=== PATIENT | female | born 1970 | race Hispanic/Latino ===

== ENCOUNTER 2017-07-26 22:20 | Inpatient (IN) | payer OTHER ==
[~2017-07-26] VITALS: Ht 160 cm; Wt 94.5 kg
[~2017-07-26 22:20] MED LIST: BACTRIM DS TAB1 EACH PO; COLACE100 MG PO; ENALAPRIL MALE2.5 MG; HYDROXYZINE HCL10 MG PO; LEVEMIR 3M100 UNITS/ SC; LEVEMIR100 UNIT/1 SC; METFORMIN HCL500 MG PO; NEXIUM40 MG PO; NORCO 7.5-3251 EACH PO; NOVOLOG MI100 UNIT/1 SC; REGLAN10 MG PO; SENOKOT8.6 MG PO
[2017-07-27] VITALS (7 sets, daily range): BP systolic 88–149; BP diastolic 53–91
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
--- OUTSIDE RECORDS SUMMARY | 2017-07-27 00:57 | XMS REPORT | Clinical Summary ---
Author Author [facility] Organization [facility] Address Unknown Phone Unavailable Care Team Providers Care Sweatband Maker Name Role Phone Dali Wong MD PCP Allergies Active Allergy Reactions Severity Noted Date Comments Duloxetine Other (See Comments) High 10/22/2013 Anxiety and Speech impairement Current Medications Prescription Sig. Disp. Refills Start End Date Status Date fluticasone (FLONASE) 50 2 sprays by Each Nare Active mcg/actuation nasal spray route daily as needed for rhinitis. loratadine (CLARITIN) 10 Take 10 mg by mouth daily Active mg tablet as needed for allergies. HYDROcodone-acetaminophen Take 1 tablet by mouth Active (NORCO) 7.5-325 mg per every 6 (six) hours as tablet needed for moderate pain. metoclopramide (REGLAN) Take 10 mg by mouth 4 Active 10 MG tablet (four) times a day. zolpidem (AMBIEN) 5 MG Take 5 mg by mouth Active tablet nightly as needed for sleep. ALPRAZolam (XANAX) 0.25 Take 0.25 mg by mouth 2 Active MG tablet (two) times a day as needed for anxiety. metoprolol succinate XL Take 25 mg by mouth Active (TOPROL-XL) 25 mg 24 hr daily. tablet pregabalin (LYRICA) 75 MG Take 75 mg by mouth 3 Active capsule (three) times a day. omeprazole (PriLOSEC) 40 Take 40 mg by mouth Active MG capsule daily. lisinopril Take 5 mg by mouth daily. Active (PRINIVIL,ZESTRIL) 5 mg tablet insulin DETEMIR (LEVEMIR Inject 45 units twice a 15 pen 1 06/02/19 Active FLEXTOUCH U-100 INSULN) day 18 100 unit/mL (3 mL) insulin pen insulin ASPART (NovoLOG Inject 40 units tid with 20 pen 1 06/02/19 Active Flexpen U-100 Insulin) meals plus correction 18 100 unit/mL insulin pen scale. pen needle, diabetic (PEN Inject 5 times a day 200 each 1 06/02/19 Active NEEDLE) 31 gauge x 5/16" 18 needle blood sugar diagnostic Matrix test strip. Test 4 200 strip 2 06/02/19 Active strips (ONETOUCH ULTRA times a day + PRN 18 TEST) strip test strips lisinopril Take 5 mg by mouth daily. 12/11/19 Discontin (PRINIVIL,ZESTRIL) 5 mg 17 ued tablet tiZANidine (ZANAFLEX) 4 Take 4 mg by mouth every 12/11/19 Discontin MG tablet 8 (eight) hours as needed 17 ued for muscle spasms. metoprolol tartrate Take 25 mg by mouth 2 05/23/19 Discontin (LOPRESSOR) 25 mg tablet (two) times a day. 18 ued promethazine (PHENERGAN) Take 25 mg by mouth every 06/02/19 Discontin 12.5 MG tablet 6 (six) hours as needed 18 ued for nausea or vomiting. citalopram (CeleXA) 20 MG Take 20 mg by mouth 05/23/19 Discontin tablet daily. 18 ued pregabalin (LYRICA) 50 MG Take 50 mg by mouth 3 05/23/19 Discontin capsule (three) times a day. 18 ued aspirin (ECOTRIN) 81 MG Take 81 mg by mouth 05/23/19 Discontin enteric coated tablet daily. 18 ued insulin detemir (LEVEMIR) Inject 45 Units under the 06/02/19 Discontin 100 unit/mL injection skin 2 (two) times a day. 18 ued insulin ASPART (NovoLOG) Inject 40 Units under the 06/02/19 Discontin 100 unit/mL injection skin 3 (three) times a 18 ued day before meals. metroNIDAZOLE (FLAGYL) Take 500 mg by mouth 3 04/28/19 05/23/19 Discontin 500 MG tablet (three) times a day. For 17 18 ued 14 days starting 04/28/16 for Cdiff amitriptyline (ELAVIL) 25 Take 25 mg by mouth 05/23/19 Discontin MG tablet nightly. 18 ued loperamide (IMODIUM) 2 mg Take 2 mg by mouth 4 06/02/19 Discontin capsule (four) times a day as 18 ued needed for diarrhea. sucralfate (CARAFATE) 100 Take 10 mL (1 g total) by 1200 mL 0 01/15/20 mg/mL suspension mouth 4 (four) times a 17 17 day before meals and nightly for 30 days. pantoprazole (PROTONIX) Take 1 tablet (40 mg 30 tablet 0 12/16/19 40 MG EC tablet total) by mouth daily for 17 17 30 days. amitriptyline (ELAVIL) 50 Take 50 mg by mouth 06/02/19 Discontin MG tablet nightly. 18 ued bisacodyl (DULCOLAX) 5 mg Take 1 tablet (5 mg 30 tablet 0 06/02/19 07/02/19 EC tablet total) by mouth daily as 18 18 needed for constipation for up to 30 days. clotrimazole (LOTRIMIN) 1 Apply topically 2 (two) 12 g 0 06/02/19 % cream times a day for 30 days. 18 18 ergocalciferol (VITAMIN Take 1 capsule (50,000 4 capsule 0 06/08/19 07/08/19 D2) 50,000 unit capsule Units total) by mouth 18 18 once a week for 30 days. insulin GLARGINE (LANTUS) Inject 30 Units under the 9 mL 0 06/02/19 06/02/19 Discontin 100 unit/mL injection skin nightly for 30 days. 18 18 ued (vial) insulin GLARGINE (LANTUS) Inject 25 Units under the 7.5 mL 0 06/03/19 06/02/19 Discontin 100 unit/mL injection skin daily for 30 days. 18 18 ued (vial) insulin lispro (HumaLOG) Inject 0-7 Units under 10 mL 12 06/02/19 Discontin 100 unit/mL injection the skin 3 (three) times 18 18 ued a day with meals for 30 days. insulin lispro (HumaLOG) Inject 16 Units under the 10 mL 12 06/03/19 06/02/19 Discontin 100 unit/mL injection skin daily with breakfast 18 18 ued for 30 days. insulin lispro (HumaLOG) Inject 16 Units under the 10 mL 12 06/02/19 06/02/19 Discontin 100 unit/mL injection skin daily before lunch 18 18 ued for 30 days. insulin lispro (HumaLOG) Inject 16 Units under the 10 mL 12 06/02/19 06/02/19 Discontin 100 unit/mL injection skin daily before dinner 18 18 ued for 30 days. polyethylene glycol Take 17 g by mouth daily 30 packet 0 06/02/19 (MIRALAX) 17 gram packet for 30 days. 18 18 doxycycline (VIBRAMYCIN) Take 2 capsules (100 mg 28 capsule 0 06/02/19 Discontin 50 MG capsule total) by mouth 2 (two) 18 18 ued times a day for 7 days. doxycycline (VIBRAMYCIN) Take 1 capsule (100 mg 14 capsule 0 06/02/19 06/09/19 100 MG capsule total) by mouth 2 (two) 18 18 times a day for 7 days. Active Problems Problem Noted Date Vitamin D deficiency 05/31/2017 Acute kidney injury 12/10/2016 Gastroparesis 12/10/2016 HTN (hypertension) 12/10/2016 Type 2 diabetes mellitus, uncontrolled 12/10/2016 Gastroparesis 08/12/2016 Hyperglycemia 06/02/2016 Type 2 diabetes mellitus with hyperglycemia, with long-term current use of 04/22/2016 insulin DM2 2016 HTN 2016 Recurrent major depressive disorder 2016 Anxiety 2016 HLD 2016 Diabetic mononeuropathy associated with type 2 diabetes mellitus 2016 Diabetic gastroparesis s/p Gastric pacemaker 02/01/2016 Resolved Problems Problem Noted Date Resolved Date Lactic acidosis 12/10/2016 12/15/2016 Leukocytosis 12/10/2016 12/15/2016 Hypoglycemia 12/10/2016 12/15/2016 Sepsis 08/12/2016 08/22/2016 Acute cystitis without hematuria 08/12/2016 08/22/2016 Abdominal pain 06/06/2016 08/22/2016 Renal insufficiency 05/23/2016 08/22/2016 Abdominal pain, acute, generalized 04/20/2016 08/22/2016 Anemia 2016 08/22/2016 Encounters Date Type Specialty Care Team Description 07/26/2017 Emergency Emergency Medicine Daysi Rosas MD Gastroparesis (Primary Dx); ANTON (acute kidney injury); Hyperglycemia 06/27/2017 Telephone General Internal Medicine Lynda Martinez RN 06/25/2017 Transcribe Access Rosita Wong MD Colitis (Primary Dx) Orders 06/13/2017 Telephone Gastroenterology Ellen Allen MA 06/12/2017 Telephone Home Health Services Iris George, PAPER MILL SUPERINTENDENT 06/06/2017 Telephone General Internal Medicine Iris George, PAPER MILL SUPERINTENDENT 05/23/2017 [facility] João Fowler MD Gastroparesis (Primary - Encounter Rosita Wong MD Dx); 06/01/2017 Breast abscess; Type 2 diabetes mellitus with hyperglycemia, with long-term current use of insulin 12/09/2016 [facility] Kristin Deshpande-Miguelina Mcintyre MD Diabetic ketoacidosis - Encounter Rosita Wong MD without coma associated 12/15/2016 with other specified diabetes mellitus (Primary Dx); Lactic acidosis; Leukocytosis, unspecified type; Essential hypertension; Diabetic gastroparesis s/p Gastric pacemaker; Type 2 diabetes mellitus with other specified complication; Type 2 diabetes mellitus with hyperglycemia, with long-term current use of insulin 10/20/2016 Telephone General Surgery June Hobson MA 08/12/2016 [facility] João Fowler MD Gastroparesis (Primary - Encounter Rosita Wong MD Dx) 08/22/2016 after 07/26/2016 Immunizations Name Dates Previously Given Next Due FLUCELVAX QUAD PF (0.5mL 06/01/2017 syringe) INFLUENZA QUAD PF 2016 Family History Medical History Relation Name Comments Diabetes Father Diabetes Mother Heart disease Mother Relation Name Status Comments Father Mother Social History Tobacco Use Types Packs/Day Years Used Date Current Some Day Smoker Cigarettes 1 30 Quit: 10/01/2015 Tobacco Cessation: Counseling Given: Yes Alcohol Use Drinks/Week oz/Week Comments No Sex Assigned at Date Recorded Not on file Last Filed Vital Signs Vital Sign Reading Time Taken Blood Pressure 143/66 07/26/2017 11:00 PM CDT Pulse 89 07/26/2017 11:00 PM CDT Temperature 36.7 C (98.1 F) 07/26/2017 9:53 PM CDT Respiratory Rate 18 07/26/2017 11:00 PM CDT Oxygen Saturation 98% 07/26/2017 11:00 PM CDT Inhaled Oxygen - - Concentration Weight 93.7 kg (206 lb 8 oz) 06/01/2017 6:25 AM [employer] Height 160 cm (5' 3") 07/26/2017 4:31 PM CDT Body Mass Index 36.58 06/01/2017 6:25 AM [employer] Plan of Treatment Health Maintenance Due Date Last Done Comments FOOT EXAM 02/08/1978 OPHTHALMOLOGY EXAM 02/08/1978 URINE MICROALBUMIN 02/08/1978 PAP SMEAR 02/08/1989 INFLUENZA VACCINE 10/31/2017 06/01/2017, 2016 Implants Implanted Type Area Investment Advisor Device Expiration Model / Identifier Date Serial / Lot Pacemaker Pacemaker Procedures * The patient is currently admitted. The information in this section might not be complete until the patient is discharged. Procedure Name Priority Date/Time Associated Diagnosis Comments DEBRIDEMENT Routine 05/25/2017 Breast abscess Results for this 7:39 PM [employer] procedure are in the results section. [place] [facility], E/M Routine 12/10/2016 Results for this 30-74 MINUTES 9:29 PM CDT procedure are in the results section. GENERAL Routine 08/30/2016 Hidradenitis suppurativa Results for this 10:27 AM CDT procedure are in the results section. ECHOCARDIOGRAM 2D Routine 08/18/2016 Results for this COMPLETE W MMODE SPECTRAL 7:17 PM CDT procedure are in the COLOR DOPPLER ([id number]) results section. after 07/26/2016 Results * Urinalysis screen and microscopy, with reflex to culture (07/26/2017 9:53 PM) Only the most recent of 5 results within the time period is included. Component Value Ref Range Specimen site Clean catch Color, UA Yellow Appearance, UA Cloudy Specific gravity, UA 1.012 1.001 - 1.035 pH, UA 6.0 5.0 - 8.5 Protein, UA 2+ (A) Negative Glucose, UA 3+ (A) Negative Ketones, UA Negative Negative Bilirubin, UA Negative Negative Blood, UA Moderate (A) Negative Nitrite, UA Negative Negative Urobilinogen, UA <2.0 <2.0 Leukocyte esterase, UA Large (A) Negative Epithelial cells, UA 2 /HPF Round epithelial cells, <1 0 - 1 /HPF UA WBC, UA >180 (H) 0 - 4 /HPF RBC, UA 12 (H) 0 - 5 /HPF Bacteria, UA Moderate (A) None seen WBC clumps, UA Many (A) Yeast, UA None seen Yeast with pseudohyphae, None seen UA Specimen Performing Laboratory Urine [facility] [place] [address] * hCG qualitative, urine screen (07/26/2017 9:53 PM) Component Value Ref Range hCG qualitative, urine NegativeComment: Sensitivity of HCG test: 25 mIU/mL Specimen Performing Laboratory Urine [facility] DEPARTMENT OF PATHOLOGY [facility] MEDICINE [address] [place] [address] * POC glucose (07/26/2017 6:00 PM) Only the most recent of 134 results within the time period is included. Component Value Ref Range POC glucose 233 (H) 65 - 99 mg/dL Comment: Meter ID: [id number] Creative Services Coordinator: Gordy Upton Specimen Performing Laboratory [facility] DEPARTMENT OF PATHOLOGY AND [facility] MEDICINE [address] [place] [address] * Beta hydroxybutyrate (07/26/2017 4:49 PM) Only the most recent of 4 results within the time period is included. Component Value Ref Range Beta hydroxybutyrate 0.24 0.02 - 0.27 mmol/L Specimen Performing Laboratory Serum [facility] [place] [address] * B natriuretic peptide (07/26/2017 4:49 PM) Only the most recent of 3 results within the time period is included. Component Value Ref Range BNP 29 0 - 100 pg/mL Specimen Performing Laboratory Blood [facility] [place] [address] * Estimated GFR (07/26/2017 3:48 PM) Only the most recent of 33 results within the time period is included. Component Value Ref Range GFR Non Af Amer 34 (A) mL/min/1.73 m2 GFR Af Amer 41 (A) mL/min/1.73 m2 Comment: Chronic kidney disease: <60 mL/min/1.73m2 Kidney failure: <15 mL/min/1.73m2 The estimated GFR is calculated from the IDMS-traceable Modification of Diet in Renal Disease Equation. The accuracy of the calculation is poor when the creatinine is normal. Calculated values >90 mL/min/1.73m2 are not reported. This equation has not been validated in children (<18 years), women, the elderly (>70 years), or ethnic groups other than Caucasians and Americans. Specimen Performing Laboratory Plasma specimen [facility] DEPARTMENT OF PATHOLOGY AND [facility] MEDICINE [address] [place] [address] * CBC with platelet and differential (07/26/2017 3:48 PM) Only the most recent of 23 results within the time period is included. Component Value Ref Range WBC 7.84 4.50 - 11.00 k/uL RBC 4.23 4.20 - 5.50 m/uL HGB 12.8 12.0 - 16.0 g/dL HCT 39.0 37.0 - 47.0 % MCV 92.2 82.0 - 100.0 fL MCH 30.3 27.0 - 34.0 pg MCHC 32.8 31.0 - 37.0 g/dL RDW - SD 46.7 37.0 - 55.0 fL MPV 10.2 8.8 - 13.2 fL Platelet count 278 150 - 400 k/uL Nucleated RBC 0.00 /100 WBC Neutrophils 80.7 (H) 39.0 - 69.0 % Lymphocytes 15.6 (L) 25.0 - 45.0 % Monocytes 2.9 0.0 - 10.0 % Eosinophils 0.1 0.0 - 5.0 % Basophils 0.4 0.0 - 1.0 % Immature granulocytes 0.3Comment: "Immature granulocytes" 0.0 - 1.0 % (promyelocytes, myelocytes, metamyelocytes) Specimen Performing Laboratory Blood [facility] DEPARTMENT OF PATHOLOGY AND [address] [address] * Comprehensive metabolic panel (07/26/2017 3:48 PM) Only the most recent of 7 results within the time period is included. Component Value Ref Range Sodium 135 135 - 148 mEq/L Potassium 5.0 3.5 - 5.0 mEq/L Chloride 99 98 - 112 mEq/L CO2 19 (L) 24 - 31 mEq/L Anion gap 17 (H) 7 - 15 mEq/L Comment: Starting from July , anion gap calculation no longer incorporates potassium. Please note the change. BUN 41 (H) 6 - 20 mg/dL Creatinine 1.6 (H) 0.5 - 0.9 mg/dL Glucose 336 (H) 65 - 99 mg/dL Calcium 9.8 8.3 - 10.2 mg/dL Protein 8.6 (H) 6.3 - 8.3 g/dL Comment: 4.6-7.0 g/dL 1 week 4.4-7.6 g/dL 7 months-1year 5.1-7.3 g/dL 1-2 years 5.6-7.5 g/dL >3 years 6.0-8.0 g/dL 18-150 6.3-8.3 g/dL Albumin 3.6 3.5 - 5.0 g/dL A/G ratio 0.7 0.7 - 3.8 Alkaline phosphatase 124 (H) 35 - 104 U/L AST 15 10 - 35 U/L ALT 11 5 - 50 U/L Total bilirubin 0.3 0.0 - 1.2 mg/dL Specimen Performing Laboratory Plasma specimen [facility] DEPARTMENT OF PATHOLOGY AND GENOMIC MEDICINE [address] [place], [place] [id number] * Vancomycin level, trough (06/01/2017 9:28 AM) Only the most recent of 3 results within the time period is included. Component Value Ref Range Vancomycin, trough 10.3 10.0 - 20.0 ug/mL Comment: Therapeutic Ranges: Peak 30.0 - 40.0 ug/mL Trough 10.0 - 20.0 ug/mL Specimen Performing Laboratory Serum [facility] DEPARTMENT OF PATHOLOGY AND [facility] MEDICINE [address] [place] [address] * Prothrombin time with INR (06/01/2017 4:40 AM) Only the most recent of 5 results within the time period is included. Component Value Ref Range Prothrombin time 13.5 12.0 - 15.0 sec INR 1.0 Comment: The International Normalized Ratio (INR) is a therapeutic monitoring tool for patients who are stable on oral anticoagulant therapy. An INR of 2.0-3.0 is suggested for deep vein thrombosis/pulmonary embolism. Specimen Performing Laboratory Blood [facility] DEPARTMENT OF PATHOLOGY AND [facility] MEDICINE [address] [place] [address] * Basic metabolic panel (06/01/2017 4:40 AM) Only the most recent of 26 results within the time period is included. Component Value Ref Range Sodium 136 135 - 148 mEq/L Potassium 4.4 3.5 - 5.0 mEq/L Chloride 97 (L) 98 - 112 mEq/L CO2 26 24 - 31 mEq/L Anion gap 13 7 - 15 mEq/L Comment: Starting from July , anion gap calculation no longer incorporates potassium. Please note the change. BUN 22 (H) 6 - 20 mg/dL Creatinine 1.2 (H) 0.5 - 0.9 mg/dL Glucose 320 (H) 65 - 99 mg/dL Calcium 9.5 8.3 - 10.2 mg/dL Specimen Performing Laboratory Plasma specimen [facility] DEPARTMENT OF PATHOLOGY AND GENOMIC MEDICINE [address] [place] [address] * Prealbumin level (05/31/2017 4:00 AM) Component Value Ref Range Prealbumin 15 (L) 16 - 32 mg/dL Specimen Performing Laboratory Serum [facility] [place] [address] * XR Abdomen 1 Vw (05/30/2017 8:39 PM) [place] [address] Narrative EXAMINATION:XR ABDOMEN 1 VW CLINICAL HISTORY:ABDOMINAL PAIN, constipation COMPARISON:Most recent IMPRESSION: 1.Oral contrast throughout the colon. Electronic device right abdomen. No small bowel obstruction seen. [id number] Procedure Note Interface, Radiology Results Incoming - 05/30/2017 8:54 PM [employer] EXAMINATION: XR ABDOMEN 1 VW CLINICAL HISTORY: ABDOMINAL PAIN, constipation COMPARISON: Most recent IMPRESSION: 1. Oral contrast throughout the colon. Electronic device right abdomen. No small bowel obstruction seen. [id number] * XR Abdomen 1 Vw Portable (05/29/2017 11:30 AM) [place] [address] Narrative EXAMINATION:XR ABDOMEN 1 VW PORTABLE CLINICAL HISTORY:constipation COMPARISON:None. IMPRESSION: There is a nonspecific bowel gas pattern. No free air is identified. Moderate amount retained contrast in the colon Atelectasis in the lung bases. Degenerative changes are present throughout the bony structures without evidence of a suspicious focal lesion. [id number] Procedure Note Interface, Radiology Results Incoming - 05/29/2017 1:03 PM [employer] EXAMINATION: XR ABDOMEN 1 VW PORTABLE CLINICAL HISTORY: constipation COMPARISON: None. IMPRESSION: There is a nonspecific bowel gas pattern. No free air is identified. Moderate amount retained contrast in the colon Atelectasis in the lung bases. Degenerative changes are present throughout the bony structures without evidence of a suspicious focal lesion. [id number] * Salmonella/shigella culture (05/29/2017 8:00 AM) Only the most recent of 2 results within the time period is included. Component Value Ref Range Salmonella/shigella No Aeromonas isolated culture isolate No Aeromonas isolated Comment: Specimen Information Specimen Source: Stool Specimen Site: Nonpreserved Specimen Performing Laboratory [facility] [place] [address] * Gastrointestinal panel (05/29/2017 8:00 AM) Only the most recent of 2 results within the time period is included. Component Value Ref Range Gastrointestinal panel Negative for all pathogens tested: Negative for Salmonella Negative for Campylobacter Negative for Diarrheagenic E coli/Shigella Negative for Shiga-like toxin-producing E coli Negative for Plesiomonas shigelloides Negative for Yersinia enterocolitica Negative for Vibrio species Negative for Clostridium difficile (Toxin A/B) Negative for Cryptosporidium Negative for Giardia lamblia Negative for Cyclospora cayeteanensis Negative for Entamoeba histolytica Negative for Adenovirus F 40/41 Negative for Astrovirus Negative for Norovirus GI/GII Negative for Rotavirus A Negative for Sapovirus Negative for Clostridium difficile toxin Negative for E coli 0157 This real-time PCR assay detects the presence of nucleic acids (RNA or DNA) for the gastrointestinal pathogens listed. A result of "Not-detected" does not exclude the possibility of the presence of one or more pathogens at concentrations less than the detectable limits of the assay. Comment: Specimen Information Specimen Source: Stool Specimen Site: Nonpreserved Specimen Performing Laboratory [facility] [place] [address] * Lipase level (05/29/2017 6:03 AM) Only the most recent of 4 results within the time period is included. Component Value Ref Range Lipase 27 13 - 60 U/L Specimen Performing Laboratory Plasma specimen [facility] DEPARTMENT OF PATHOLOGY AND [address] [address] * Amylase level (05/29/2017 6:03 AM) Only the most recent of 3 results within the time period is included. Component Value Ref Range Amylase 48 28 - 100 U/L Specimen Performing Laboratory Plasma specimen [facility] DEPARTMENT OF PATHOLOGY AND [address] [address] * Hepatic function panel (05/29/2017 6:03 AM) Component Value Ref Range Albumin 2.4 (L) 3.5 - 5.0 g/dL Total bilirubin <0.2 0.0 - 1.2 mg/dL Bilirubin direct <0.2 0.0 - 0.3 mg/dL Alkaline phosphatase 63 35 - 104 U/L Protein 6.4 6.3 - 8.3 g/dL Comment: 4.6-7.0 g/dL 1 week 4.4-7.6 g/dL 7 months-1year 5.1-7.3 g/dL 1-2 years 5.6-7.5 g/dL >3 years 6.0-8.0 g/dL 18-150 6.3-8.3 g/dL ALT 10 5 - 50 U/L AST 11 10 - 35 U/L Specimen Performing Laboratory Plasma specimen [facility] DEPARTMENT OF PATHOLOGY AND GENOMIC MEDICINE [address] [place] [address] * SC Upper GI (05/28/2017 9:58 AM) Specimen Performing Laboratory [facility] [address] [place] [address] Narrative EXAMINATION:FL UPPER GI CLINICAL HISTORY:Esophageal Pain COMPARISON:None. TECHNIQUE:UPPER GI SERIES was performed with effervescent granules and barium. FLUOROSCOPIC TIME:2 minutes. 3 overhead radiographs and 12 fluoroscopic exposures. IMPRESSION: 1.Limited single contrast study was performed due to patient immobility. Positioning was quite limited. 2.Esophagus was evaluated in AP and minimally LPO projections. Within these confines, there was no evidence of obstructing esophageal mass or stricture. There was grossly normal esophageal motility/clearance. 3.GE junction is patent. Questionable small hiatal hernia. 4.Gastric contour is grossly normal. There was delayed gastric emptying; only a trace amount of contrast entered into the duodenum during the course of the exam.This can be correlated with gastric emptying study as indicated. 5.Duodenum cannot be evaluated, as contrast did not empty into the duodenum during the course of the exam. [facility]-[id number] Procedure Note Interface, Radiology Results Incoming - 05/28/2017 10:58 AM [employer] EXAMINATION: FL UPPER GI CLINICAL HISTORY: Esophageal Pain COMPARISON: None. TECHNIQUE: UPPER GI SERIES was performed with effervescent granules and barium. FLUOROSCOPIC TIME: 2 minutes. 3 overhead radiographs and 12 fluoroscopic exposures. IMPRESSION: 1. Limited single contrast study was performed due to patient immobility. Positioning was quite limited. 2. Esophagus was evaluated in AP and minimally LPO projections. Within these confines, there was no evidence of obstructing esophageal mass or stricture. There was grossly normal esophageal motility/clearance. 3. GE junction is patent. Questionable small hiatal hernia. 4. Gastric contour is grossly normal. There was delayed gastric emptying; only a trace amount of contrast entered into the duodenum during the course of the exam. This can be correlated with gastric emptying study as indicated. 5. Duodenum cannot be evaluated, as contrast did not empty into the duodenum during the course of the exam. [facility]-[id number] * Uric acid level (05/28/2017 4:35 AM) Only the most recent of 3 results within the time period is included. Component Value Ref Range Uric acid 1.6 (L) 2.4 - 5.7 mg/dL Specimen Performing Laboratory Plasma specimen [facility] DEPARTMENT OF PATHOLOGY AND GENOMIC MEDICINE [address] [place] [address] * Phosphorus level (05/28/2017 4:35 AM) Only the most recent of 9 results within the time period is included. Component Value Ref Range Phosphorus 2.0 (L) 2.4 - 4.5 mg/dL Specimen Performing Laboratory Plasma specimen [facility] DEPARTMENT OF PATHOLOGY AND GENOMIC MEDICINE [address] [place] [address] * Magnesium level (05/28/2017 4:35 AM) Only the most recent of 14 results within the time period is included. Component Value Ref Range Magnesium 1.8 1.6 - 2.6 mg/dL Specimen Performing Laboratory Plasma specimen [facility] DEPARTMENT OF PATHOLOGY AND GENOMIC MEDICINE [address] [place] [address] * Vitamin D 25 hydroxy level (05/26/2017 3:00 AM) Component Value Ref Range Vitamin D, 25-hydroxy 7.0 (L) 30.0 - 150.0 ng/mL Comment: This assay reports the sum of 25-hydroxy vitamin D3 and 25-hydroxy vitamin D2. Reference range: 0-17 years: Deficiency: less than 20ng/mL Optimum level: greater than or equal to 20 ng/mL. 18 years and older: Deficiency: less than 20ng/mL Insufficiency: 20-29 ng/mL Optimum Level: 30-80 ng/mL The assay reportable range is 3.4 155.9 ng/mL. Levels higher than 150 ng/mL may be associated with toxicity. If toxicity is clinically suspected and the reported result is >155.9 ng/mL,contact lab for alternative methods to obtain a definitive level. If separate quantitation of 25-hydroxy vitamin D3 and 25-hydroxy vitamin D2 is needed, please contact lab for alternative methods. Specimen Performing Laboratory Blood [facility] DEPARTMENT OF PATHOLOGY AND GENOMIC MEDICINE [address] [place] [address] * Hemoglobin A1c (05/26/2017 3:00 AM) Only the most recent of 3 results within the time period is included. Component Value Ref Range Hemoglobin A1C 10.0 (H) 4.0 - 5.6 % Comment: HbA1c cutoffs for diagnosing diabetes: 4.0% - 5.6%=normal 5.7% - 6.4%=increased risk for diabetes (prediabetes) >=6.5%=diabetes Goals for glycemic control (ADA 2016) < 7.0% Target for non adults with diabetes. More or less stringent targets may be appropriate for individual patients. <7.5% Target for Children and adolescents with type 1 diabetes. Specimen Performing Laboratory Blood [facility] DEPARTMENT OF PATHOLOGY AND GENOMIC MEDICINE [address] [place] [address] * Lipid panel (05/26/2017 3:00 AM) Component Value Ref Range Cholesterol 144 <200 mg/dL Triglycerides 329 (H) <150 mg/dL HDL cholesterol 21 (L) >40 mg/dL LDL cholesterol 82Comment: Result obtained by direct LDL <100 mg/dL measurement Lipid panel SeeBelow interpretation Comment: Total Cholesterol (mg/dL) <200 Desirable 200-239 Borderline-high >=240 High Triglycerides (mg/dL) <150 Normal 150-199 Borderline-high 200-499 High >=500 Very high HDL Cholesterol (mg/dL) <40 Low (male) <40 Low (female) LDL Cholesterol (mg/dL) <100 Optimal 100-129 Near or above optimal 130-159 Borderline-high 160-189 High >=190 Very high Risk Catergories that modify LDL goals. Risk Catergories LDL goal (mg/dL) CHD and CHD risk equivalent <100 (10-year risk >20%) Multiple (2+) risk factors <130 (10-year risk=<20%) 0-1 risk factors <160 (<10-year risk) Defining levels of lipids in metabolic syndrome Triglycerides >=150 mg/dL HDL Cholesterol Men <40 mg/dL Women <40 mg/dL Non-HDL cholesterol is a second target for therapy in persons with high triglycerides (>=200 mg/dL) Specimen Performing Laboratory Plasma specimen [facility] DEPARTMENT OF PATHOLOGY AND [address] [address] * Urine eosinophils (05/26/2017 12:30 AM) Component Value Ref Range Eosinophils, urine NONE Specimen Performing Laboratory Urine [facility] DEPARTMENT PATHOLOGY [facility] MEDICINE [address] [place] [address] * Sodium level, urine, random (05/26/2017 12:30 AM) Component Value Ref Range Sodium, urine, random 46 mEq/L Specimen Performing Laboratory Urine [facility] DEPARTMENT PATHOLOGY [address] [address] * Protein, urine, random (05/26/2017 12:30 AM) Component Value Ref Range Protein, urine random 5 mg/dL Specimen Performing Laboratory Urine [facility] DEPARTMENT PATHOLOGY [address] [address] * Potassium, urine, random (05/26/2017 12:30 AM) Component Value Ref Range Potassium, urine, random 10.2 mEq/L Specimen Performing Laboratory Urine [facility] DEPARTMENT PATHOLOGY [address] [address] * Creatinine level, urine, random (05/26/2017 12:30 AM) Component Value Ref Range Creatinine, urine, random 23 mg/dL Specimen Performing Laboratory Urine [facility] DEPARTMENT OF PATHOLOGY [address] [address] * Chloride level, urine, random (05/26/2017 12:30 AM) Component Value Ref Range Chloride, urine, random 36 mEq/L Specimen Performing Laboratory Urine [facility] DEPARTMENT OF PATHOLOGY [facility] MEDICINE [address] [place] [address] * Debridement (05/25/2017 7:39 PM) Narrative Jorge Luis Mueller MD 05/25/20171:44 PM Incisions and Drainage of Right Breast Abscess Date/Time: 05/25/2017 1:39 PM Performed by: JORGE LUIS MUELLER Authorized by: MOIRA LOCKE JR. Consent Obtained:Verbal Risks and benefits discussed with:Patient [place] Protocol: Procedure explained and questions answered to patient or proxy's satisfaction. Relevant documents present and verified.Test results available and properly labeled.Imaging studies available. Site/side marked. Immediately prior to procedure, a time out was called. Patient identity confirmed:Verbally with patient Number of Locations and Indications: Number of Locations:1 Indications:Other Patient tolerated the procedure well with no immediate complications. Anesthesia: Local Anesthetic:Lidocaine 1% with epinephrine Anesthetic Total (mL):5 Response To Treatment: Response to Treatment:Patient tolerated the procedure well with no immediate complications Skin lesion 1 location: Right medial breast. Pre Debridement Measurements: Length (cm):2 Width (cm):1 Area (cm3):2 Debridement 1: Incision and drainage. Drainage Description:Purulent Drainage Amount:Moderate Wound Treatment:Wound packed Packing Material:/ in gauze Instrument:Blade, curette and forceps (mosquito) Bleeding:Minimal Post Length (cm):2 Post Width (cm):1 Post Depth (cm):2 Depth (through level of):Superficial and/or subcutaneous and/or dermis and/or fat layer Medical Necessity:Infected * ECG 12 lead (05/23/2017 4:41 PM) Only the most recent of 5 results within the time period is included. Component Value Ref Range Ventricular rate 97 Atrial rate 97 AZ interval 126 QRSD interval 78 QT interval 366 QTC interval 464 P axis 1 47 QRS axis 1 57 T wave axis 73 EKG impression ^^^ Suspect unspecified pacemaker failure-Normal sinus rhythm-Nonspecific ST and T wave abnormality-Abnormal ECG-In automated comparison with ECG of 12-DEC-2016 13:57,-Nonspecific T wave abnormality now evident in Lateral leads- Specimen Performing Laboratory [facility] MUSE [address] [place] [address] * Troponin (05/23/2017 4:20 PM) Only the most recent of 5 results within the time period is included. Component Value Ref Range Troponin <0.30 0.00 - 0.30 ng/mL Comment: 0.30 - 1.49 ng/ml May indicate increased risk of acute coronary syndrome. >=1.5 ng/ml Consistent with acute myocardial infarction. The diagnostic value of a single normal or non-diagnostic result is questionable. Serial samples at 2-6 hour intervals are required to rule out acute myocardial injury. Specimen Performing Laboratory Plasma specimen [facility] DEPARTMENT OF PATHOLOGY AND GENOMIC MEDICINE [address] [place] [address] * Partial thromboplastin time, activated (05/23/2017 4:20 PM) Only the most recent of 4 results within the time period is included. Component Value Ref Range PTT 25.8 23.0 - 36.0 sec Comment: PTT therapeutic range for unfractionated heparin is 61.0-112.0 seconds which corresponds to Anti-Xa 0.3-0.7 U/ml. Specimen Performing Laboratory Blood [facility] DEPARTMENT OF PATHOLOGY AND GENOMIC MEDICINE [address] [place] [address] * Lactic acid level (05/23/2017 4:20 PM) Only the most recent of 9 results within the time period is included. Component Value Ref Range Lactic acid 1.6 0.5 - 2.2 mmol/L Specimen Performing Laboratory Plasma specimen [facility] DEPARTMENT OF PATHOLOGY AND GENOMIC MEDICINE [address] [place] [address] * ECG ED Preliminary Interpretation - NOT AN ORDER (05/23/2017 2:53 PM) Narrative João Fowler MD 05/24/2017 11:31 AM ECG ED Preliminary Interpretation - Not an Order Performed by: JOÃO FOWLER Authorized by: JOÃO FOWLER ECG reviewed by ED Physician in the absence of a therapist asst: yes Previous ECG: Previous ECG:Compared to current Similarity:Changes noted Interpretation: Interpretation: abnormal Rate: ECG rate:97 ECG rate assessment: normal Rhythm: Rhythm: paced Ectopy: Ectopy: none QRS: QRS axis:Normal QRS intervals:Normal Conduction: Conduction: normal ST segments: ST segments:Non-specific T waves: T waves: non-specific * XR Chest 1 Vw Portable (05/23/2017 2:49 PM) Only the most recent of 3 results within the time period is included. Specimen Performing Laboratory [facility] [address] [place] [address] Narrative EXAMINATION:XR CHEST 1 VW PORTABLE CLINICAL HISTORY:Chest Pain COMPARISON:Most Recent Prior at [facility] IMPRESSION: 1. The heart and pulmonary vasculature are normal. There are no acute infiltrates or effusions. The lungs are clear. Osseous structures intact. Degenerative changes of the spine. [facility]-[id number] Procedure Note Hm Interface, Radiology Results Incoming - 05/23/2017 2:57 PM [facility] [employer] [employer] EXAMINATION: XR CHEST 1 VW PORTABLE CLINICAL HISTORY: Chest Pain COMPARISON: Most Recent Prior at [facility] IMPRESSION: 1. The heart and pulmonary vasculature are normal. There are no acute infiltrates or effusions. The lungs are clear. Osseous structures intact. Degenerative changes of the spine. [facility]-[id number] * FL Esophagram Complete (12/13/2016 12:02 PM) Specimen Performing Laboratory [address] [address] Narrative EXAMINATION:FL ESOPHAGRAM COMPLETE CLINICAL HISTORY:DIFFICULTY SWALLOWING, DYSPHAGIAOROPHARYNGEAL UNEXPLAINED COMPARISON:None. Fluoroscopy time: 4.3 minutes, 19 images obtained FINDINGS: The patient swallowed air producing granules and barium without difficulty. The esophagus demonstrates normal motility. No focal mucosal abnormality is identified. There is no evidence of stricture. The esophagogastric junction is unremarkable. There is no evidence of gastroesophageal reflux. IMPRESSION: No significant abnormality. [facility]-[id number] Procedure Note Interface, Radiology Results Incoming - 12/13/2016 1:42 PM CDT EXAMINATION: FL ESOPHAGRAM COMPLETE CLINICAL HISTORY: DIFFICULTY SWALLOWING, DYSPHAGIA OROPHARYNGEAL UNEXPLAINED COMPARISON: None. Fluoroscopy time: 4.3 minutes, 19 images obtained FINDINGS: The patient swallowed air producing granules and barium without difficulty. The esophagus demonstrates normal motility. No focal mucosal abnormality is identified. There is no evidence of stricture. The esophagogastric junction is unremarkable. There is no evidence of gastroesophageal reflux. IMPRESSION: No significant abnormality. [facility]-[id number] * Potassium level (12/11/2016 5:55 AM) Only the most recent of 2 results within the time period is included. Component Value Ref Range Potassium 3.9 3.5 - 5.0 mEq/L Specimen Performing Laboratory Plasma specimen [facility] DEPARTMENT OF PATHOLOGY AND GENOMIC MEDICINE [address] [place] [address] * Ionized calcium (12/11/2016 4:00 AM) Only the most recent of 3 results within the time period is included. Component Value Ref Range pH 7.55 Ionized calcium 1.10 (L) 1.11 - 1.32 mmol/L Specimen Performing Laboratory Plasma specimen [facility] DEPARTMENT OF PATHOLOGY AND GENOMIC MEDICINE [address] [place] [address] * CRITICAL CARE (12/10/2016 9:29 PM) Alvin Deshpande MD 12/10/20169:29 PM Critical Care Performed by: JONATHAN HERNÁNDEZ Authorized by: ALONA DESHPANDE Critical care provider statement: Critical care time (minutes):35 Critical care start time:12/10/2016 12:20 AM Critical care end time:12/10/2016 12:55 AM Critical care time was exclusive of:Separately billable procedures and treating other patients and teaching time Critical care was necessary to treat or prevent imminent or life-threatening deterioration of the following conditions:Dehydration, endocrine crisis, metabolic crisis, renal failure, sepsis and shock Critical care was time spent personally by me on the following activities:Blood draw for specimens, development of treatment plan with patient or surrogate, discussions with primary provider, ordering and performing treatments and interventions, ordering and review of laboratory studies, ordering and review of radiographic studies, pulse oximetry, re-evaluation of patient's condition, review of old charts, obtaining history from patient or surrogate, evaluation of patient's response to treatment and examination of patient * Pv duplex venous lower extremity (12/10/2016 1:55 PM) Specimen Performing Laboratory [facility] [address] [place] [address] Narrative Vascular Ultrasound Laboratory Lower Extremity Venous Report [address] [place] [address] Pat.Name:Natali AVILEZ.ID:[id number] .Date: 12/10/2016 Refer.MD:ROSITA WONG MD Exam Time: 1:32:00 PMStudy Type:LE Venous Height:63inWeight:202lb BSA: 1.94 m2 DOBAge:1969,46Y Sex: FEMALESonogrphr: Ángel Santana, [facility], [facility] Pat. Stat.:Inpatient Room:[place] [address] TapeVol: SB, CPT - 4: 96694 Echo Event ID:[id number] Order ID:[id number] Reason for Study:Bilateral leg edema; evaluate for DVT. Abdominal pain and vomiting. History of HTN, depression/anxiety, gastroparesis, HLD, anemia, DM and chronic pain. Race:C SUMMARY: DUPLEX SCAN OBSERVATIONS Deep VeinsSuperficial Veins RightLeft RightLeft GSV (prox) NormalNormal CFV Normal Normal (above knee) Femoral Normal Normal GSV (dist) Normal Normal Profunda Normal Normal (below knee) Popliteal Normal Normal PT (prox) Normal NormalSSV Not Visualized Not Visualized PT (dist) Normal Normal Peroneal Normal Normal RIGHT:There is normal compressibility with no evidence of echogenic material noted within the lumen of the visualized veins. Colorflow and Doppler signals are normal. LEFT: There is normal compressibility with no evidence of echogenic material noted within the lumen of the visualized veins. Colorflow and Doppler signals are normal. PRELIMINARY FINDINGS 1. Normal venous duplex exam of the visualized veins. PHYSICIAN INTERPRETATION 1.Venous examination of the both lower extremities demonstrates no evidence of venous thrombosis. Signed 12/10/2016 03:58 PM Wade Saini MD Procedure Note Interface, Radiology Results In - 12/10/2016 3:58 PM CDT Vascular Ultrasound Laboratory Lower Extremity Venous Report [address] [place] [address] Pat.Name: KRISTIN AVILEZ Pat.ID: [id number] .Date: 12/10/2016 Refer.MD: ROSITA WONG MD Exam Time: 1:32:00 PM Study Type:LE Venous Height: 63in Weight: 202lb BSA: 1.94 m2 Age: 11 1970,46Y Sex: FEMALE Sonogrphr: ERWIN Padilla RCS Pat. Stat.:Inpatient Room: [place] [address] Tape Vol: SB, CPT - 4: 96471 Echo Event ID:[id number] Order ID: [id number] Reason for Study:Bilateral leg edema; evaluate for DVT. Abdominal pain and vomiting. History of HTN, depression/anxiety, gastroparesis, HLD, anemia, DM and chronic pain. Race: C SUMMARY: DUPLEX SCAN OBSERVATIONS Deep Veins Superficial Veins Right Left Right Left GSV (prox) Normal Normal CFV Normal Normal (above knee) Femoral Normal Normal GSV (dist) Normal Normal Profunda Normal Normal (below knee) Popliteal Normal Normal PT (prox) Normal Normal SSV Not Visualized Not Visualized PT (dist) Normal Normal Peroneal Normal Normal RIGHT: There is normal compressibility with no evidence of echogenic material noted within the lumen of the visualized veins. Colorflow and Doppler signals are normal. LEFT: There is normal compressibility with no evidence of echogenic material noted within the lumen of the visualized veins. Colorflow and Doppler signals are normal. PRELIMINARY FINDINGS 1. Normal venous duplex exam of the visualized veins. PHYSICIAN INTERPRETATION 1. Venous examination of the both lower extremities demonstrates no evidence of venous thrombosis. Signed 12/10/2016 03:58 PM Wdae Saini MD * Respiratory pathogen panel (12/10/2016 5:05 AM) Component Value Ref Range Respiratory pathogen Negative for all pathogens tested: panel Negative for Adenovirus Negative for Coronavirus HKU1 Negative for Coronavirus NL63 Negative for Coronavirus 229E Negative for Coronavirus OC43 Negative for Human Metapneumovirus Negative for Rhinovirus/Enterovirus Negative for Influenza A Negative for Influenza A/H1 Negative for Influenza A/H3 Negative for Influenza A/H1-2009 Negative for Influenza B Negative for Parainfluenza Virus 1 Negative for Parainfluenza Virus 2 Negative for Parainfluenza Virus 3 Negative for Parainfluenza Virus 4 Negative for Respiratory Syncytial Virus Negative for Bordetella pertussis Negative for Chlamydophila pneumoniae Negative for Mycoplasma pneumoniae This real-time PCR assay detects the presence of nucleic acids (RNA or DNA) for the respiratory pathogens listed. A result of "Not-detected" does not exclude the possibility of the presence of one or more pathogens at concentrations less than the detectable limits of the assay. Comment: Specimen Information Specimen Source: Nares Specimen Site: Left Specimen Performing Laboratory Nares - Left [facility] DEPARTMENT OF PATHOLOGY AND GENOMIC MEDICINE [address] [place], [place] [id number] * hCG qualitative, serum screen (12/10/2016 5:05 AM) Only the most recent of 2 results within the time period is included. Component Value Ref Range hCG qualitative, serum NegativeComment: Sensitivity of HCG test: 25 mIU/mL Specimen Performing Laboratory Blood [facility] DEPARTMENT OF PATHOLOGY AND GENOMIC MEDICINE [address] [place] [address] * Urine drugs of abuse screen (12/10/2016 4:57 AM) Component Value Ref Range Amphetamine screen, urine Negative Barbiturate screen, urine Negative Benzodiazepine screen, Negative urine Cannabinoid screen, urine Negative Cocaine screen, urine Negative Methadone metabolite Negative (EDDP), urine Opiates screen, urine Positive (A) Oxycodone screen, urine Negative Phencyclidine screen, Negative urine Tricyclic screen, urine Negative Comment: Drug screen minimum concentration of detectability Amphetamines 1000 ng/mL Barbiturates 200 ng/mL Benzodiazepines 300 ng/mL Cocaine 300 ng/mL Methadone 3 00 ng/mL Opiates 300 ng/mL Oxycodone 3 00 ng/mL Phencyclidine 25 ng/mL Cannabinoids 50 ng/mL Tricyclics 1000 ng/mL Negative test results indicates presumptive evidence of lack of clinically significant drug concentration in this urine specimen. Positive test results are presumptive evidence of clinically significant drug concentration in this urine specimen. Testing performed for medical purposes only. Specimen Performing Laboratory Urine [facility] DEPARTMENT OF PATHOLOGY AND GENOMIC MEDICINE [address] [place] [address] * Gram stain (12/10/2016 4:40 AM) Only the most recent of 3 results within the time period is included. Component Value Ref Range Gram stain result Rare WBC's Many Yeast Many Gram positive rods Comment: Specimen Information Specimen Source: Urine Specimen Site: See UA Specimen Performing Laboratory Urine [facility] DEPARTMENT OF PATHOLOGY AND GENOMIC MEDICINE [address] [place] [address] * Urine culture (12/10/2016 4:40 AM) Only the most recent of 3 results within the time period is included. Component Value Ref Range Urine culture isolate Mixed Gram positive jerson 10-4 cfu/ml (A) Comment: Specimen Information Specimen Source: Urine Specimen Site: See UA Specimen Performing Laboratory Urine [facility] DEPARTMENT OF PATHOLOGY AND GENOMIC MEDICINE [address] [place] [address] * CBC hemogram (12/10/2016 3:56 AM) Component Value Ref Range WBC 14.42 (H) 4.50 - 11.00 k/uL RBC 3.98 (L) 4.20 - 5.50 m/uL HGB 12.3 12.0 - 16.0 g/dL HCT 37.1 37.0 - 47.0 % MCV 93.2 82.0 - 100.0 fL MCH 30.9 27.0 - 34.0 pg MCHC 33.2 31.0 - 37.0 g/dL RDW - SD 45.4 37.0 - 55.0 fL MPV 9.5 8.8 - 13.2 fL Platelet count 273 150 - 400 k/uL Nucleated RBC 0.00 /100 WBC Specimen Performing Laboratory Blood [facility] DEPARTMENT OF PATHOLOGY AND GENOMIC MEDICINE [address] [place] [address] * Venous blood gas (12/10/2016 3:56 AM) Only the most recent of 3 results within the time period is included. Component Value Ref Range pH, venous 7.42 7.32 - 7.42 pCO2, venous 44 (L) 45 - 51 mmHg pO2, venous 55 (H) 25 - 40 mmHg Base excess, venous 4 (H) -2 - 2 meq/L O2 saturation, venous 87 (H) 40 - 70 % Bicarbonate, venous 28.4 (H) 21.0 - 28.0 mmol/L Specimen Performing Laboratory Blood [facility] [place] [address] * Alcohol level, blood (12/10/2016 3:56 AM) Component Value Ref Range Alcohol None Detected mg/dL Comment: Normal None Detected Legal Intoxication in [place] 80 mg/dL (0.08%) - Whole Blood Toxic Concentration 200 mg/dL (0.2%) Potentially Fatal 350 - 500 mg/dL (0.35 - 0.5%) Alcohol percent None Detected % Specimen Performing Laboratory Plasma specimen [facility] DEPARTMENT OF PATHOLOGY AND GENOMIC MEDICINE [address] [place] [address] * Bedside glucose (12/10/2016 1:13 AM) Only the most recent of 2 results within the time period is included. Component Value Ref Range POC glucose 333 Specimen Performing Laboratory Blood * CT Abdomen Pelvis Wo Contrast (12/10/2016 1:01 AM) Only the most recent of 2 results within the time period is included. Specimen Performing Laboratory [facility] [address] [place] [address] Narrative Examination:CT ABDOMEN PELVIS WO CONTRAST Clinical History: ABDOMINAL PAIN Comparison: None. Findings: CT scans are performed using radiation dose reduction techniques.Technical factors are evaluated and adjusted to ensure appropriate moderation of exposure. Automated dose management technology is applied to adjust radiation exposure while achieving a diagnostic quality image. CT scan of the abdomen and pelvis was performed without intravenous contrast. The liver, spleen, pancreas, and adrenal glands are unremarkable. The kidneys are within normal limits without hydronephrosis or urinary calculus. The patient is status post cholecystectomy. The appendix is visualized and unremarkable. No bowel thickening or fat stranding is seen. No bowel dilatation is seen. No free air or fluid is seen. Urinary bladder is unremarkable. The visualized lung bases are clear. IMPRESSION: 1. No acute abnormality identified in abdomen or pelvis. [facility]-[id number] Procedure Note [facility], Radiology Results Incoming - 12/10/2016 1:26 AM CDT Examination: CT ABDOMEN PELVIS WO CONTRAST Clinical History: ABDOMINAL PAIN Comparison: None. Findings: CT scans are performed using radiation dose reduction techniques. Technical factors are evaluated and adjusted to ensure appropriate moderation of exposure. Automated dose management technology is applied to adjust radiation exposure while achieving a diagnostic quality image. CT scan of the abdomen and pelvis was performed without intravenous contrast. The liver, spleen, pancreas, and adrenal glands are unremarkable. The kidneys are within normal limits without hydronephrosis or urinary calculus. The patient is status post cholecystectomy. The appendix is visualized and unremarkable. No bowel thickening or fat stranding is seen. No bowel dilatation is seen. No free air or fluid is seen. Urinary bladder is unremarkable. The visualized lung bases are clear. IMPRESSION: 1. No acute abnormality identified in abdomen or pelvis. [facility]-[id number] * Blood culture, aerobic & anaerobic (12/10/2016 12:01 AM) Only the most recent of 7 results within the time period is included. Component Value Ref Range Blood culture isolate No growth after 5 days of incubation. Comment: Specimen Information Specimen Source: Blood Specimen Site: Arm, left Specimen Performing Laboratory Blood - Arm, left [facility] DEPARTMENT OF PATHOLOGY AND GENOMIC MEDICINE [address] [place] [address] * Creatine kinase, total (CPK) (12/09/2016 11:42 PM) Component Value Ref Range Creatine kinase 121 26 - 192 U/L Specimen Performing Laboratory Plasma specimen [facility] DEPARTMENT OF PATHOLOGY AND GENOMIC MEDICINE [address] [place] [address] * GENERAL (08/30/2016 10:27 AM) Narrative Robert Constantino MD 06/10/20165:45 AM Incision and Drainage of Left Axillary Abscess Date/Time: 06/10/2016 5:43 AM Performed by: ROBERT CONSTANTINO Authorized by: MOIRA LOCKE JR Consent: Consent obtained:Verbal and written Consent given by:Patient Risks discussed:Bleeding, infection, incomplete drainage, nerve damage and pain Alternatives discussed:No treatment, delayed treatment and observation Indications: Indications:Left Axillary Abscess Pre-procedure details: Skin preparation:Betadine Preparation: Patient was prepped and draped in the usual sterile fashion Sedation: Sedation type:Anxiolysis Anesthesia (see MAR for exact dosages): Anesthesia method:Local infiltration Local anesthetic:Lidocaine 1% WITH epi Post-procedure details: Patient tolerance of procedure:Tolerated well, no immediate complications * Echocardiogram complete w contrast and 3D if needed (08/18/2016 7:17 PM) Specimen Performing Laboratory [facility] [address] [place] [address] Narrative Echocardiography Report [address] [place] [address] Pat.Name:Natali AVILEZ.ID:[id number] .Date: 08/18/2016 Refer.MD:ROSITA WONG MD Exam Time: 5:22:00 PMStudy Type:Routine Echo Height:63inWeight:202lb BSA: 1.94 m2 DOBAge:1969,46Y Sex: FEMALEBP: 158/70 HR:87 bpm Sonogrphr: Heidi Valdovinos RDCS, RVT Pat. Stat.:Inpatient Room:[facility] Study Status:Final Echo Event ID:[id number] Order ID:[id number] Reason for Study:Evaluate for endocarditis Procedures:2D Echo, Colorflow Doppler, Strain, Portable Race:C SUMMARY: No significant valve dysfunction noted.No intracardiac mass noted. FINDINGS: LV: LV size is normal. There is mild concentric LV hypertrophy. LVfunction is normal. Overall wall motion is normal. EstimatedEF is 60-64%. RV: RV size is normal. RV function is normal. LA: LA volume is mildly enlarged. RA: RA size is normal. AO: Aortic root diameter is normal. NILSA: No pericardial effusion. IAS:Atrial septum is normal. AV: No structural AV abnormalities noted. MV: No structural MV abnormalities noted. A trace of mitral regurgitation. PV: No structural PV abnormalities noted. A trace of pulmonic regurgitation. TV: No structural TV abnormalities noted. Mild tricuspid regurgitation Agudelo: LV relaxation is normal. LV filling pressure is normal. Other:Insufficient TR jet to estimate PA systolic pressure. MEASUREMENTS: 2D Parasternal Long [place] LVOT 2 cmLA Ds 3.9 cm LVIDd4.7 cmIndex 2.4 cm/m Ao An2.2 cm LVIDs3 cmAo Rtd 3 cm Index1.5 cm/m LV%fs 36.2 % LV Mass 237.9 g(87-129) IVSd 1.3 cmLVM Index 122.6 g/m2 LVPWd1.3 cmRWT 0.6 LA Sng Plane LA Area 20.6 cm2(8.8-23.4) LA Vol73.3 ml Index37.8 ml/m LA LngAx 4.9 cm DOPPLER Stroke Vol joanne 2 cm CO 5.6 l/min TVI20.2 cm CI 2.9 l/m/m2 Tm301 msecHR 88 bpm SV 63.5 ml Signed 08/19/2016 03:28 PM João John M.D. Procedure Note Interface, Radiology Results In - 08/19/2016 3:28 PM CDT Echocardiography Report [address]Name: KRISTIN AVILEZ.ID: [id number] .Date: 08/18/2016 Refer.MD: ROSITA WOGN MD Exam Time: 5:22:00 PM Study Type:Routine Echo Height: 63in Weight: 202lb BSA: 1.94 m2 Age: 11 1970,46Y Sex: FEMALE BP: 158/70 HR: 87 bpm Sonogrphr: Heidi Valdovinos RDCS, RVT Pat. Stat.:Inpatient Room: [facility] Study Status:Final Echo Event ID:[id number] Order ID: [id number] Reason for Study:Evaluate for endocarditis Procedures:2D Echo, Colorflow Doppler, Strain, Portable Race: C SUMMARY: No significant valve dysfunction noted. No intracardiac mass noted. FINDINGS: LV: LV size is normal. There is mild concentric LV hypertrophy. LV function is normal. Overall wall motion is normal. Estimated EF is 60-64%. RV: RV size is normal. RV function is normal. LA: LA volume is mildly enlarged. RA: RA size is normal. AO: Aortic root diameter is normal. NILSA: No pericardial effusion. IAS: Atrial septum is normal. AV: No structural AV abnormalities noted. MV: No structural MV abnormalities noted. A trace of mitral regurgitation. PV: No structural PV abnormalities noted. A trace of pulmonic regurgitation. TV: No structural TV abnormalities noted. Mild tricuspid regurgitation Agudelo: LV relaxation is normal. LV filling pressure is normal. Other: Insufficient TR jet to estimate PA systolic pressure. MEASUREMENTS: 2D Parasternal Long [place] LVOT 2 cm LA Ds 3.9 cm LVIDd 4.7 cm Index 2.4 cm/m Ao An 2.2 cm LVIDs 3 cm Ao Rtd 3 cm Index 1.5 cm/m LV%fs 36.2 % LV Mass 237.9 g (87-129) IVSd 1.3 cm LVM Index 122.6 g/m2 LVPWd 1.3 cm RWT 0.6 LA Sng Plane LA Area 20.6 cm2 (8.8-23.4) LA Vol 73.3 ml Index 37.8 ml/m LA LngAx 4.9 cm DOPPLER Stroke Vol joanne 2 cm CO 5.6 l/min TVI 20.2 cm CI 2.9 l/m/m2 Tm 301 msec HR 88 bpm SV 63.5 ml Signed 08/19/2016 03:28 PM João John M.D. * Manual differential (08/17/2016 5:00 AM) Only the most recent of 3 results within the time period is included. Component Value Ref Range Manual differential PERFORMED Neutrophils 77.0 (H) 39.0 - 69.0 % Lymphocytes 14.0 (L) 25.0 - 45.0 % Monocytes 6.0 0.0 - 10.0 % Eosinophils 3.0 0.0 - 5.0 % Basophils 0.0 0.0 - 1.0 % Metamyelocytes 0 % Promyelocytes 0 % Platelet slide review Ankita adequate Specimen Performing Laboratory [facility] DEPARTMENT OF PATHOLOGY AND GENOMIC MEDICINE [address] [place], [place] [id number] * CT Chest Wo Contrast (08/16/2016 11:55 AM) Specimen Performing Laboratory [facility] [address] [place] [address] Narrative EXAMINATION: CT CHEST WO CONTRAST CLINICAL HISTORY: COUGHPERSISTENT TECHNIQUE: Multiple axial images were obtained from the lung apices to the lung bases without the administration of intravenous contrast.The lack of intravenous contrast reduces the sensitivity of detecting solid organ disease and evaluating vasculature. Coronal and sagittal reformats were obtained.CT imaging was performed with iterative reconstruction technique and/or automated exposure control to reduce radiation dose. COMPARISON: None. FINDINGS: Heart size is mildly enlarged. The aorta measures within normal limits.The pulmonary artery is within normal limits. A precarinal 0.9 x 1.4 cm borderline enlarged lymph node is seen. Smaller mediastinal nodes are present. There are small bilateral pleural effusions. A posterior left upper lobe 4 mm nodule is present. This is nonspecific. Follow- up study could be performed at six months if clinically warranted. Mild bilateral lower lung atelectasis seen. The liver, pancreas, adrenal glands, and kidneys are within normal limits in their visible portions. There is splenomegaly. The spleen is 15.4 cm in length. Splenomegaly is moderate. Patient is status post cholecystectomy. Surgical clips are seen in the anterior abdomen. A suspicious osseous lesion is not seen. IMPRESSION: Splenomegaly.Tiny posterior left upper lobe pulmonary nodule. Follow-up can be performed if warranted. Mild cardiomegaly. Procedure Note [facility], Radiology Results Incoming - 08/16/2016 1:25 PM CDT EXAMINATION: CT CHEST WO CONTRAST CLINICAL HISTORY: COUGH PERSISTENT TECHNIQUE: Multiple axial images were obtained from the lung apices to the lung bases without the administration of intravenous contrast.The lack of intravenous contrast reduces the sensitivity of detecting solid organ disease and evaluating vasculature. Coronal and sagittal reformats were obtained.CT imaging was performed with iterative reconstruction technique and/or automated exposure control to reduce radiation dose. COMPARISON: None. FINDINGS: Heart size is mildly enlarged. The aorta measures within normal limits. The pulmonary artery is within normal limits. A precarinal 0.9 x 1.4 cm borderline enlarged lymph node is seen. Smaller mediastinal nodes are present. There are small bilateral pleural effusions. A posterior left upper lobe 4 mm nodule is present. This is nonspecific. Follow- up study could be performed at six months if clinically warranted. Mild bilateral lower lung atelectasis seen. The liver, pancreas, adrenal glands, and kidneys are within normal limits in their visible portions. There is splenomegaly. The spleen is 15.4 cm in length. Splenomegaly is moderate. Patient is status post cholecystectomy. Surgical clips are seen in the anterior abdomen. A suspicious osseous lesion is not seen. IMPRESSION: Splenomegaly.Tiny posterior left upper lobe pulmonary nodule. Follow-up can be performed if warranted. Mild cardiomegaly. * Erythropoietin (08/15/2016 4:00 AM) Component Value Ref Range Erythropoietin 207.5 (H) 2.6 - 18.5 mIU/mL Specimen Performing Laboratory Serum [facility] DEPARTMENT OF PATHOLOGY AND GENOMIC MEDICINE [address] [place] [address] * LDH (08/15/2016 4:00 AM) Only the most recent of 2 results within the time period is included. Component Value Ref Range LDH 161 87 - 225 U/L Specimen Performing Laboratory Plasma specimen [facility] PATHOLOGY [address] [address] * Haptoglobin (08/15/2016 4:00 AM) Component Value Ref Range Haptoglobin 394 (H) 30 - 200 mg/dL Specimen Performing Laboratory Plasma specimen [facility] PATHOLOGY [address] [address] * Folate level (08/15/2016 4:00 AM) Component Value Ref Range Folate 11.2 4.8 - 24.2 ng/mL Specimen Performing Laboratory Serum [facility] PATHOLOGY [address] [address] * Vitamin B12 level (08/15/2016 4:00 AM) Component Value Ref Range Vitamin B12 1,292 (H) 211 - 946 pg/mL Comment: Significant overlap exists between normal and deficiency states. However, most patients with deficiencies will have Serum B12 <200 pg/mL. Specimen Performing Laboratory Serum [facility] [place] [address] * Hemoglobin & hematocrit (08/14/2016 11:15 AM) Component Value Ref Range HGB 6.3 (LL) 12.0 - 16.0 g/dL Comment: _HH results called to and read back by _DINA ACEVEDO (name/location) at 08/14/2016 11:41 _(date/time) by __. HCT 19.9 (L) 37.0 - 47.0 % Specimen Performing Laboratory Blood [facility] PATHOLOGY [address] [address] * Campylobacter culture (08/14/2016 9:00 AM) Component Value Ref Range Campylobacter culture No Campylobacter isolated. isolate Comment: Specimen Information Specimen Source: Stool Specimen Site: Nonpreserved Specimen Performing [facility] [address] [address] * Occult blood, stool (08/14/2016 9:00 AM) Component Value Ref Range Occult blood, stool Negative for occult blood. Comment: Specimen Information Specimen Source: Stool Specimen Site: Nonpreserved Specimen [facility]forming [facility] [address] [place] [address] * Total iron binding capacity (08/14/2016 4:00 AM) Component Value Ref Range Iron level 12 (L) 37 - 145 ug/dL Iron binding capacity 171 (L) 200 - 400 ug/dL % Saturation 7.0 (L) 15.0 - 38.0 % Specimen Performing Laboratory Plasma specimen [facility] DEPARTMENT OF PATHOLOGY AND [facility] MEDICINE [address] [place] [address] * Ferritin level (08/14/2016 4:00 AM) Component Value Ref Range Ferritin level 205 (H) 13 - 150 ng/mL Specimen Performing Laboratory Plasma specimen [facility] DEPARTMENT OF PATHOLOGY AND GENOMIC MEDICINE [address] [place] [address] * Arterial blood gas (08/13/2016 1:15 AM) Component Value Ref Range pH, arterial 7.38 7.35 - 7.45 pCO2, arterial 34 (L) 35 - 45 mmHg pO2, arterial 117 (H) 80 - 90 mmHg Bicarbonate, arterial 19.9 (L) 21.0 - 28.0 mmol/L Base excess, arterial -4 (L) -2 - 2 mEq/L O2 saturation, arterial 98 95 - 100 % Specimen Performing Laboratory Blood [facility] DEPARTMENT PATHOLOGY [facility] MEDICINE [address] [place] [address] * Prepare RBC, 2 Units (08/13/2016 1:14 AM) Component Value Ref Range Product name Apheresis -1 LR #1 Unit number [id number] Product code [id number] Dispense status Transfused Blood expiration date 20160820 Blood type code 6200 Blood type A POSITIVE Product name Apheresis -1 LR #2 Unit number [id number] Product code [id number] Dispense status Transfused Blood expiration date 20160820 Blood type code 6200 Blood type A POSITIVE Specimen Performing Laboratory [facility] DEPARTMENT OF PATHOLOGY AND GENOMIC MEDICINE [address] [place], [place] [id number] * Type and screen (08/13/2016 1:14 AM) Component Value Ref Range ABO grouping A Rh type POS Antibody screen (gel) NEG Specimen Performing Laboratory Blood [facility] DEPARTMENT OF PATHOLOGY [facility] MEDICINE [address] [place] [address] after 07/26/2016 Insurance Payer Benefit Subscriber ID Type Phone Address Plan / Group [employer] MEDICA[employer] xxxxxxxxx HMO COMM STAR+ BHAVNA
[2017-07-27] MEDS ORDERED: LYRICA75 MG PO (02:29)
[2017-07-27] MEDS ORDERED: OMEPRAZOLE40 MG PO (02:29)
[2017-07-27] MEDS ORDERED: AMBIEN5 MG PO (02:29)
[2017-07-27] MEDS ORDERED: METOPROLOL SUCC25 MG PO (02:29)
[2017-07-27] MEDS ORDERED: NORCO 7.5-3251 EACH PO (02:29)
[2017-07-27] MEDS ORDERED: LISINOPRIL2.5 MG PO (02:29)
[2017-07-27] MEDS ORDERED: LORATADINE10 MG PO (02:29)
[2017-07-27] MEDS ORDERED: ALPRAZOLAM0.25 M1 PO (02:29)
[2017-07-27] MEDS ORDERED: NOVOLOG100 UNIT/1 SQ (02:29)
[2017-07-27] MEDS: SODIUM CHLORIDE 0.9% 1000ML 1,000 ML IV SCH ×3 (03:15→22:15)
[2017-07-27] MEDS ORDERED: LORATADINE 10 MG TAB PO PRN (03:15)
[2017-07-27] MEDS ORDERED: PANTOPRAZOLE 40 MG 10ML VIAL IV SCH (09:00)
[2017-07-27] MEDS: PANTOPRAZOLE SOD 40 MG TABEC PO SCH (09:36)
[2017-07-27] MEDS: METOPROLOL SUCCINATE 25 MG TAB XL PO SCH (09:36)
[2017-07-27] MEDS: METOCLOPRAMIDE HCL 10 MG TAB PO SCH ×4 (09:36→21:25)
[2017-07-27] MEDS: LISINOPRIL 2.5 MG TAB PO SCH (09:36)
[2017-07-27] MEDS: PREGABALIN 75 MG CAP PO SCH ×3 (09:36→21:25)
[2017-07-27] MEDS: HYDROCODONE/APAP 7.5MG-325MG 1 EA TAB PO PRN ×2 (09:41→16:36)
[2017-07-27] MEDS: INSULIN LISPRO 100 UNIT/1 ML 3ML VIAL SQ SCH ×5 (10:14→21:25)
[2017-07-27 12:15] LABS: BASOPHILS % 0.6 % (0.0-1.0); EOSINOPHILS # (AUTO) 0.1 (0.0-0.4); EOSINOPHILS % 1.7 % (0.0-6.0); HEMATOCRIT 33.8 % (34.2-44.1); HEMOGLOBIN 10.9 g/dL (12.0-16.0); LYMPHOCYTES # (AUTO) 1.9 (1.0-3.2); LYMPHOCYTES % 38.9 % (18.0-39.1); MEAN CORPUSCULAR HEMOGLOBIN 29.9 pg (28-32); MEAN CORPUSCULAR HGB CONC 32.2 g/dL (31-35); MEAN CORPUSCULAR VOLUME 92.6 fL (81-99); MONOCYTES # (AUTO) 0.4 (0.2-0.8); MONOCYTES % 8.2 % (4.4-11.3); NEUTROPHILS # (AUTO) 2.4 (2.1-6.9); NEUTROPHILS % 50.4 % (38.7-80.0); PLATELET COUNT 219 x10e3/uL (140-360); RED BLOOD COUNT 3.65 x10e6/uL (3.6-5.1); RED CELL DISTRIBUTION WIDTH 13.8 % (11.7-14.4)
[2017-07-27] MEDS: ALPRAZOLAM 0.25 MG TAB PO PRN (12:24)
--- NOTE | 2017-07-27 12:29 | Consultation ---
DATE OF CONSULTATION: July 27, 2017 GASTROENTEROLOGY CONSULTATION REFERRING PHYSICIAN: Dr. Samuel Rodriguez REASON FOR CONSULTATION: Gastroparesis. HISTORY OF PRESENT ILLNESS: Ms. Ramirez is a 47-year-old woman with history of gastroparesis with gastric pacemaker. She has several flares a year. She last had her pacemaker adjusted in May, which seemed to have helped a little bit. She comes in with nausea, vomiting and pain in the epigastric region as well as pain in the left flank. She has some dysuria and urinary frequency. She has not had any constipation or diarrhea. The left flank pain is new and separate from what she usually feels with her gastroparesis flares. PAST MEDICAL HISTORY 1. Diabetes. 2. Hypertension. 3. Gastroparesis. 4. Depression. 5. Anxiety. 6. Hyperlipidemia. SURGICAL HISTORY: Includes: 1. . 2. Nose repair. 3. Pacemaker, gastric. MEDICATION AND ALLERGIES: Reviewed, please see MAR and medication reconciliation form. SOCIAL HISTORY: Positive for some tobacco smoking and remote illicits. No significant alcohol. FAMILY HISTORY: Reviewed and noncontributory. REVIEW OF SYSTEMS: A 12-system review is positive for that mentioned in HPI, otherwise unremarkable. PHYSICAL EXAMINATION GENERAL: Pleasant, alert, in no acute distress. HEENT: Pupils are equal, round and reactive to light. NECK: Supple. LUNGS: Clear. CARDIOVASCULAR: S1, S2. ABDOMEN: Soft. Tender in the epigastric region and left flank. No rebound, guarding or mass. EXTREMITIES: No clubbing, cyanosis or edema. PSYCH: Calm, cooperative. NEUROLOGIC: Nonfocal. HEM-ONC: No bruising or adenopathy. Electronic health record is reviewed for laboratory and radiologic studies as well as history. ASSESSMENT: Gastroparesis: She has a gastric pacemaker. She did not receive any help with Botox previously. Therefore, it is unlikely to be helpful at this time. I would treat her underlying infection if she has a urinary tract infection as well as strive for tight glycemic control. She notes that her glucose is very out of control as an outpatient, and has not yet been able to get into an sausage cutter. Will continue with IV fluids, clear liquids if tolerated and antiemetics, minimizing narcotics as able. Agree with treating any anxiety or psychiatric comorbidity as this can worsen her symptoms as well. Will need to check her chemistries and ensure she is not going into DKA as she has apparently had diabetes since the age of 16. Thank you very much for asking me to see Ms. Ramirez. Any questions or concerns, please do not hesitate to contact me. Will follow along with you. Job#: [id number]
[2017-07-27 12:34] LABS: ANION GAP 9.9 mmol/L (8-16); CALCIUM 9.3 mg/dL (8.4-10.2); CREATININE, SERUM 1.4 mg/dL (0.57-1.11); MAGNESIUM 1.9 MG/DL (1.3-2.1); POTASSIUM 3.9 mmol/L (3.5-5.1)
[2017-07-27 13:10] LABS: FREE T4 (FREE THYROXINE) 0.94 ng/dL (0.9-1.8); THYROID STIMULATING HORMONE 0.778 uIU/mL (0.350-4.940)
[2017-07-27] MEDS: MORPHINE SULFATE 2 MG/ML SYR IV PRN (21:25)
[2017-07-27] MEDS: INSULIN DETEMIR 100 UNIT/ML PEN SQ SCH (21:25)
[2017-07-28] MEDS: HYDROCODONE/APAP 7.5MG-325MG 1 EA TAB PO PRN ×2 (02:01→12:12)
[2017-07-28 04:00] VITALS: BP 116/56
[2017-07-28] MEDS ORDERED: METOCLOPRAMIDE HCL 10 MG/2ML VIAL IV ONE (04:15)
[2017-07-28] MEDS ORDERED: METOCLOPRAMIDE HCL 10 MG/2ML VIAL IV SCH (06:00)
[2017-07-28] MEDS: INSULIN LISPRO 100 UNIT/1 ML 3ML VIAL SQ SCH ×7 (07:30→20:30)
[2017-07-28 08:00] VITALS: BP 112/59
[2017-07-28] MEDS: PREGABALIN 75 MG CAP PO SCH ×3 (09:15→20:30)
[2017-07-28] MEDS: METOPROLOL SUCCINATE 25 MG TAB XL PO SCH (09:16)
[2017-07-28] MEDS: PANTOPRAZOLE SOD 40 MG TABEC PO SCH (09:16)
[2017-07-28] MEDS: LISINOPRIL 2.5 MG TAB PO SCH (09:16)
[2017-07-28] MEDS: SODIUM CHLORIDE 0.9% 1000ML 1,000 ML IV SCH ×2 (09:32→17:07)
[2017-07-28 12:00] VITALS: BP 111/56
[2017-07-28] MEDS: METOCLOPRAMIDE HCL 10 MG/2ML VIAL IV SCH ×2 (14:00→17:07)
[2017-07-28 16:00] VITALS: BP 102/51
[2017-07-28] MEDS: ALPRAZOLAM 0.25 MG TAB PO PRN (18:36)
[2017-07-28] MEDS: MORPHINE SULFATE 2 MG/ML SYR IV PRN (18:36)
[2017-07-28 20:00] VITALS: BP 129/84
[2017-07-28] MEDS: INSULIN DETEMIR 100 UNIT/ML PEN SQ SCH (20:30)
[2017-07-28] MEDS: ZOLPIDEM TARTRATE 5 MG TAB PO PRN (22:15)
[2017-07-29] VITALS (8 sets, daily range): BP systolic 120–157; BP diastolic 53–81
[2017-07-29] MEDS: METOCLOPRAMIDE HCL 10 MG/2ML VIAL IV SCH ×5 (00:15→23:59)
[2017-07-29] MEDS: MORPHINE SULFATE 2 MG/ML SYR IV PRN ×2 (00:22→10:43)
[2017-07-29] MEDS: SODIUM CHLORIDE 0.9% 1000ML 1,000 ML IV SCH ×2 (05:00→19:27)
[2017-07-29] MEDS: HYDROCODONE/APAP 7.5MG-325MG 1 EA TAB PO PRN ×2 (05:09→21:09)
[2017-07-29] MEDS: INSULIN LISPRO 100 UNIT/1 ML 3ML VIAL SQ SCH ×7 (07:30→21:10)
[2017-07-29] MEDS: LISINOPRIL 2.5 MG TAB PO SCH (09:04)
[2017-07-29] MEDS: PREGABALIN 75 MG CAP PO SCH ×3 (09:04→21:07)
[2017-07-29] MEDS: METOPROLOL SUCCINATE 25 MG TAB XL PO SCH (09:04)
[2017-07-29] MEDS: PANTOPRAZOLE SOD 40 MG TABEC PO SCH (09:04)
[2017-07-29] MEDS: ALPRAZOLAM 0.25 MG TAB PO PRN ×2 (12:32→21:09)
[2017-07-29 13:32] LABS: CLARITY,URINE CLOUDY (CLEAR); COLOR,URINE YELLOW (YELLOW)
[2017-07-29 13:33] LABS: BACTERIA,URINE MODERATE /HPF; BILIRUBIN,URINE NEGATIVE (NEGATIVE); KETONES,URINE NEGATIVE (NEGATIVE); LEUKOCYTE ESTERASE ,URINE 2+ (NEGATIVE); NITRITE,URINE NEGATIVE (NEGATIVE); PROTEIN,URINE DIPSTICK TRACE (NEGATIVE); URINE UROBILINOGEN 0.2 mg/dL (0.2 - 1); WBC,URINE (MAN) >50 /HPF (0-5)
[2017-07-29 13:34] LABS: AMORPHOUS SEDIMENT,URINE FEW (FEW); EPITHELIAL CELLS,URINE FEW /LPF; MUCUS,URINE FEW (RARE)
[2017-07-29] MEDS: LEVOFLOXACIN 500MG/D5W 100ML 100 ML IV SCH (19:26)
[2017-07-29] MEDS: INSULIN DETEMIR 100 UNIT/ML PEN SQ SCH (21:10)
[2017-07-29] MEDS: ZOLPIDEM TARTRATE 5 MG TAB PO PRN (23:59)
[2017-07-30] VITALS (8 sets, daily range): BP systolic 95–184; BP diastolic 51–79
[2017-07-30] MEDS: SODIUM CHLORIDE 0.9% 1000ML 1,000 ML IV SCH ×3 (00:22→20:15)
[2017-07-30] MEDS: ALPRAZOLAM 0.25 MG TAB PO PRN ×2 (04:28→23:26)
[2017-07-30] MEDS: METOCLOPRAMIDE HCL 10 MG/2ML VIAL IV SCH ×4 (05:19→23:26)
--- NOTE | 2017-07-30 05:42 | Consultation ---
DATE OF CONSULTATION: July 27, 2017 ENDOCRINE CONSULTATION Thank you very much for referring this patient. This is a 47-year-old female who is referred to me for evaluation of uncontrolled diabetes mellitus. Patient tells me that she is a known diabetic for last 15-20 years, and takes a combination of Levemir insulin 40 units twice a day and Humalog about 30 three times a day depending upon the blood sugars. She has a history of severe gastroparesis, depression and anxiety. Is on several medications at home. This time she came to the hospital with a history of nausea and vomiting. Patient is on several medications at home, including insulin. She is also on Reglan 10 mg 3 times a day, omeprazole and Lyrica for neuropathy. PHYSICAL EXAMINATION GENERAL: Today, the patient is alert, awake and a little bit apprehensive. She is moderately overweight. VITALS: Her heart rate is around 78, blood pressure 140/80 mmHg. HEENT: Essentially unremarkable. Thyroid is palpable. Clinically, she is near euthyroid. CHEST: Bilateral vesicular breathing. No rubs heard. CARDIAC: Both 1st and 2nd heart sounds. There is no 3rd or 4th heart sound heard. EXTREMITIES: Patient has evidence of diabetic sensorimotor neuropathy in both lower extremities. CLINICAL IMPRESSION 1. Diabetes mellitus, type 2, uncontrolled with complications. 2. Severe gastroparesis. 3. Diabetic sensory neuropathy. 4. Hypertension. 5. Hyperlipidemia. PLAN: At this time, is to do a hemoglobin A1c and thyroid function test. Monitor her blood sugars closely. Advance the diet and adjust insulin dose. Thanks for referring this patient. I will follow this patient with you. Job#: [id number] OLEKSANDR WALL
[2017-07-30] MEDS: INSULIN LISPRO 100 UNIT/1 ML 3ML VIAL SQ SCH ×7 (07:30→20:35)
[2017-07-30] MEDS: METOPROLOL SUCCINATE 25 MG TAB XL PO SCH (08:33)
[2017-07-30] MEDS: PANTOPRAZOLE SOD 40 MG TABEC PO SCH (08:33)
[2017-07-30] MEDS: LISINOPRIL 2.5 MG TAB PO SCH (08:33)
[2017-07-30] MEDS: PREGABALIN 75 MG CAP PO SCH ×3 (08:33→20:34)
[2017-07-30] MEDS: HYDROCODONE/APAP 7.5MG-325MG 1 EA TAB PO PRN ×4 (08:46→21:49)
[2017-07-30 12:00] LABS: BASOPHILS % 0.4 % (0.0-1.0); EOSINOPHILS # (AUTO) 0.1 (0.0-0.4); EOSINOPHILS % 1.9 % (0.0-6.0); HEMATOCRIT 33.7 % (34.2-44.1); HEMOGLOBIN 10.9 g/dL (12.0-16.0); LYMPHOCYTES # (AUTO) 1.7 (1.0-3.2); LYMPHOCYTES % 35.2 % (18.0-39.1); MEAN CORPUSCULAR HEMOGLOBIN 29.5 pg (28-32); MEAN CORPUSCULAR HGB CONC 32.3 g/dL (31-35); MEAN CORPUSCULAR VOLUME 91.1 fL (81-99); MONOCYTES # (AUTO) 0.4 (0.2-0.8); MONOCYTES % 7.8 % (4.4-11.3); NEUTROPHILS # (AUTO) 2.6 (2.1-6.9); NEUTROPHILS % 54.3 % (38.7-80.0); PLATELET COUNT 196 x10e3/uL (140-360); RED CELL DISTRIBUTION WIDTH 13.4 % (11.7-14.4)
[2017-07-30 12:17] LABS: ANION GAP 12.9 mmol/L (8-16); CALCIUM 9.8 mg/dL (8.4-10.2); CREATININE, SERUM 1.34 mg/dL (0.57-1.11); POTASSIUM 4.9 mmol/L (3.5-5.1)
[2017-07-30] MEDS: LEVOFLOXACIN 500MG/D5W 100ML 100 ML IV SCH (16:16)
[2017-07-30] MEDS: INSULIN DETEMIR 100 UNIT/ML PEN SQ SCH (20:36)
[2017-07-31] VITALS (7 sets, daily range): BP systolic 107–137; BP diastolic 52–68
[2017-07-31] MEDS: HYDROCODONE/APAP 7.5MG-325MG 1 EA TAB PO PRN ×4 (02:48→19:36)
[2017-07-31] MEDS: METOCLOPRAMIDE HCL 10 MG/2ML VIAL IV SCH ×3 (05:29→17:21)
[2017-07-31] MEDS: SODIUM CHLORIDE 0.9% 1000ML 1,000 ML IV SCH (06:15)
[2017-07-31 07:09] LABS: BASOPHILS % 0.3 % (0.0-1.0); EOSINOPHILS # (AUTO) 0.1 (0.0-0.4); EOSINOPHILS % 1.8 % (0.0-6.0); HEMATOCRIT 34.7 % (34.2-44.1); HEMOGLOBIN 11.1 g/dL (12.0-16.0); LYMPHOCYTES # (AUTO) 2.5 (1.0-3.2); LYMPHOCYTES % 39.9 % (18.0-39.1); MEAN CORPUSCULAR HEMOGLOBIN 29.4 pg (28-32); MONOCYTES # (AUTO) 0.5 (0.2-0.8); MONOCYTES % 7.3 % (4.4-11.3); NEUTROPHILS # (AUTO) 3.1 (2.1-6.9); NEUTROPHILS % 50.4 % (38.7-80.0); PLATELET COUNT 217 x10e3/uL (140-360); RED BLOOD COUNT 3.77 x10e6/uL (3.6-5.1); RED CELL DISTRIBUTION WIDTH 13.5 % (11.7-14.4)
[2017-07-31 07:44] LABS: ANION GAP 13.1 mmol/L (8-16); CALCIUM 9.8 mg/dL (8.4-10.2); CREATININE, SERUM 1.42 mg/dL (0.57-1.11); POTASSIUM 5.1 mmol/L (3.5-5.1)
[2017-07-31] MEDS: PREGABALIN 75 MG CAP PO SCH ×3 (07:52→20:23)
[2017-07-31] MEDS: PANTOPRAZOLE SOD 40 MG TABEC PO SCH (07:52)
[2017-07-31] MEDS: LISINOPRIL 2.5 MG TAB PO SCH (07:52)
[2017-07-31] MEDS: METOPROLOL SUCCINATE 25 MG TAB XL PO SCH (07:53)
[2017-07-31] MEDS: INSULIN LISPRO 100 UNIT/1 ML 3ML VIAL SQ SCH ×7 (07:55→20:23)
[2017-07-31] MEDS: ALPRAZOLAM 0.25 MG TAB PO PRN ×2 (10:50→18:40)
[2017-07-31] MEDS: MEROPENEM 1 GM VIAL IV SCH (12:04)
[2017-07-31] MEDS: INSULIN DETEMIR 100 UNIT/ML PEN SQ SCH (20:23)
[2017-07-31] MEDS ORDERED: MEROPENEM 1GRAM 1 GM in SODIUM CHLORIDE 0.9% 100 ML 100 ML IV SCH (21:00)
[2017-08-01] VITALS (8 sets, daily range): BP systolic 102–127; BP diastolic 53–67
[2017-08-01] MEDS: MEROPENEM 1 GM VIAL IV SCH ×3 (00:12→23:48)
[2017-08-01] MEDS: METOCLOPRAMIDE HCL 10 MG/2ML VIAL IV SCH ×5 (00:12→23:48)
[2017-08-01] MEDS: HYDROCODONE/APAP 7.5MG-325MG 1 EA TAB PO PRN ×5 (00:13→21:10)
[2017-08-01] MEDS: INSULIN LISPRO 100 UNIT/1 ML 3ML VIAL SQ SCH ×7 (07:45→21:30)
[2017-08-01] MEDS: ALPRAZOLAM 0.25 MG TAB PO PRN ×2 (08:16→18:00)
[2017-08-01] MEDS: LISINOPRIL 10 MG TAB PO SCH (08:17)
[2017-08-01] MEDS: PANTOPRAZOLE SOD 40 MG TABEC PO SCH (08:17)
[2017-08-01] MEDS: PREGABALIN 75 MG CAP PO SCH ×3 (08:17→22:05)
[2017-08-01] MEDS: METOPROLOL SUCCINATE 25 MG TAB XL PO SCH (08:18)
[2017-08-01] MEDS: INSULIN DETEMIR 100 UNIT/ML PEN SQ SCH (21:30)
[2017-08-01] MEDS: ZOLPIDEM TARTRATE 5 MG TAB PO PRN (22:56)
[2017-08-02] VITALS: BP 112/59
[2017-08-02] MEDS: HYDROCODONE/APAP 7.5MG-325MG 1 EA TAB PO PRN ×2 (02:32→08:56)
[2017-08-02 05:00] VITALS: BP 135/62
[2017-08-02] MEDS: METOCLOPRAMIDE HCL 10 MG/2ML VIAL IV SCH ×2 (05:33→11:55)
[2017-08-02 07:15] VITALS: BP 135/62
[2017-08-02 07:24] VITALS: BP 129/59
[2017-08-02] MEDS: INSULIN LISPRO 100 UNIT/1 ML 3ML VIAL SQ SCH ×4 (07:50→11:50)
[2017-08-02] MEDS: PANTOPRAZOLE SOD 40 MG TABEC PO SCH (08:30)
[2017-08-02] MEDS: PREGABALIN 75 MG CAP PO SCH ×2 (08:30→14:52)
[2017-08-02] MEDS: LISINOPRIL 10 MG TAB PO SCH (08:30)
[2017-08-02] MEDS: METOPROLOL SUCCINATE 25 MG TAB XL PO SCH (08:30)
[2017-08-02] MEDS: ALPRAZOLAM 0.25 MG TAB PO PRN (10:10)
[2017-08-02] MEDS: MEROPENEM 1 GM VIAL IV SCH (11:55)
[2017-08-02 12:24] VITALS: BP 126/65
[2017-08-02] MEDS ORDERED: HYDROCODONE/APAP 7.5MG-325MG 1 EA TAB PO PRN ×2 (14:45→15:00)
[2017-08-02 16:04] VITALS: BP 141/65
[2017-08-02] MEDS ORDERED: NORCO 7.5-3251 EACH PO (17:43)
[2017-08-02] MEDS ORDERED: MACRODANTIN100 MG PO (17:44)
[2017-08-02] MEDS ORDERED: LEVEMIR100 UNIT/1 SC ×2 (17:45)
[2017-08-02] MEDS ORDERED: INSULIN DETEMIR 100 UNIT/ML PEN SQ SCH (21:00)
[2017-08-03] MEDS ORDERED: INSULIN DETEMIR 100 UNIT/ML PEN SQ SCH (09:00)
== END 2017-08-02 17:27 | disposition home or self-care (01) | DRG 74 ==
LOC: MED/SURG2 07-27 00:55 → MED/SURG 07-29 22:11 → MED/SURG3 07-31 10:53
DX: E11.43 Type 2 diabetes mellitus with diabetic autonomic (poly)neuropathy (principal); N39.0 Urinary tract infection, site not specified; F11.20 Opioid dependence, uncomplicated; K31.84 Gastroparesis; E11.65 Type 2 diabetes mellitus with hyperglycemia; E78.5 Hyperlipidemia, unspecified; Z96.89 Presence of other specified functional implants; F17.200 Nicotine dependence, unspecified, uncomplicated; G89.4 Chronic pain syndrome; E11.22 Type 2 diabetes mellitus with diabetic chronic kidney disease; I12.9 Hypertensive chronic kidney disease with stage 1 through stage 4 chronic kidney disease, or unspecified chronic kidney disease; N18.3 Chronic kidney disease, stage 3 (moderate); Z79.4 Long term (current) use of insulin; B96.20 Unspecified Escherichia coli [E. coli] as the cause of diseases classified elsewhere; Z16.12 Extended spectrum beta lactamase (ESBL) resistance
CPT/HCPCS: 36415; 80048; 81001; 82948; 83036; 83735; 84439; 84443; 85025; 87086; 87186; J1956; J2185; J2270; J2765; J7030

== ENCOUNTER 2018-09-15 21:49 | Emergency (ER) | payer OTHER ==
[~2018-09-15] VITALS: Ht 160 cm; Wt 94.3 kg
[~2018-09-15 21:49] MED LIST changes: +ALPRAZOLAM0.25 M1 PO; +AMBIEN5 MG PO; +LISINOPRIL2.5 MG PO; +LORATADINE10 MG PO; +LYRICA75 MG PO; +MACRODANTIN100 MG PO; +METOPROLOL SUCC25 MG PO; +NOVOLOG100 UNIT/1 SQ; +OMEPRAZOLE40 MG PO
--- OUTSIDE RECORDS SUMMARY | 2018-09-15 21:54 | XMS REPORT | Continuity of Care Document ---
Author Author [facility] Interface Address Unknown Phone Unavailable Problems Problem Status Onset Date Classification Date Reported Comments Source CHRONIC PAIN SYNDROME Active 05/19/2014 Condition 05/19/2014 [facility] ANXIETY DISORDER Active 05/19/2014 Condition 05/19/2014 [facility] NONCOMPLIANCE Active 05/19/2014 Condition 05/19/2014 [facility] GASTROPARESIS Active 05/19/2014 Condition 05/19/2014 [facility] DIABETES MELLITUS, TYPE II, UNCONTROLLED Active 02/24/2014 Condition 05/19/2014 [facility] DEPRESSION, MAJOR Active 02/24/2014 Condition 05/19/2014 [facility] HYPERTENSION Active 02/24/2014 Condition 05/19/2014 [facility] HYPERLIPIDEMIA Active 02/24/2014 Condition 05/19/2014 [facility] PEPTIC ULCER DISEASE Active 02/24/2014 Condition 05/19/2014 [facility] LOSS OF APPETITE Active 02/24/2014 Condition 05/19/2014 [facility] DIABETIC NEUROPATHY Active 02/24/2014 Condition 05/19/2014 [facility] FATIGUE Active 02/24/2014 Condition 05/19/2014 [facility] SMOKER Active 02/24/2014 Condition 05/19/2014 [facility] Medications Medication Details Route Status Patient Instructions Ordering Provider Order Date Source POLYETHYLENE GLYCOL 3350 POWD take 17 gr a day as instructed as needed constipation Active 05/19/2014 [facility] HYDROXYZINE HCL 10 MG TABS 1 tablet 4 times daily as needed for anxiety and insomnia Active 05/19/2014 [facility] LEVEMIR FLEXTOUCH 100 UNIT/ML SOPN inject 12 units sub q once at night Active 02/24/2014 [facility] NOVOLOG FLEXPEN 100 UNIT/ML SOPN inject 8 units sub q three times a day with meals Active 02/24/2014 [facility] REGLAN 5 MG TABS take one tablet by mouth four times a day Active 02/24/2014 [facility] BUSPIRONE HCL 5 MG TABS take one tablet by mouth three times a day Active 02/24/2014 [facility] GABAPENTIN 300 MG CAPS take one capsule by mouth three times a day Active 02/24/2014 [facility] LISINOPRIL 40 MG TABS take one tablet by mouth once a day Active 02/24/2014 [facility] PANTOPRAZOLE SODIUM 40 MG TBEC take one tablet by mouth at bedtime Active 02/24/2014 [facility] METFORMIN HCL 500 MG TABS Take one tablet by mouth two times a day Active 02/24/2014 [facility] SUCRALFATE 1 GM TABS take 1 tablet four times a day Active 02/24/2014 [facility] MIRTAZAPINE 30 MG TABS Take one tablet by mouth once a day at bedtime Active 02/24/2014 [facility] METOPROLOL SUCCINATE ER 25 MG [id number] Take one tablet by mouth once a day every 24 hours Active 02/24/2014 [facility] STRIP To check 2 times a day (to dispense insurance preferance) Active 02/24/2014 [facility] LANCETS To check 2 times a day (to dispense insurance preferance) Active 02/24/2014 [facility] PANTOPRAZOLE SODIUM 40 MG TBEC take one tablet by mouth at bedtime Active 02/24/2014 [facility] METFORMIN HCL 500 MG TABS Take one tablet by mouth two times a day Active 02/24/2014 [facility] MIRTAZAPINE 30 MG TABS Take one tablet by mouth once a day at bedtime Active 02/24/2014 [facility] LEVEMIR FLEXTOUCH 100 UNIT/ML SOPN inject 12 units sub q once at night Active 02/24/2014 [facility] ONDANSETRON HCL 4 MG TABS take one tablet by mouth twice a day as needed for nausea Active 02/24/2014 [facility] Allergies, Adverse Reactions, Alerts Substance Category Reaction Severity Reaction type Status Date Reported Comments Source CYMBALTA Drug allergy CYMBALTA 02/24/2014 [facility] Immunizations Immunization Date Given Site Status Last Updated Comments Source Results Order Name Results Value Reference Range Date Interpretation Comments Source Vital Signs Vital Sign Value Date Comments Source Height 63 05/19/2014 [facility] Weight 168.25 05/19/2014 [facility] Temperature Oral (F) 96.9 F 05/19/2014 [facility] Respitory Rate 14 05/19/2014 [facility] Heart Rate 97 05/19/2014 [facility] Systolic (mm Hg) 141 05/19/2014 [facility] Diastolic (mm Hg) 70 05/19/2014 [facility] Weight 156 02/24/2014 [facility] Temperature Oral (F) 97.0 F 02/24/2014 [facility] Respitory Rate 16 02/24/2014 [facility] Heart Rate 108 02/24/2014 [facility] Systolic (mm Hg) 142 02/24/2014 [facility] Diastolic (mm Hg) 78 02/24/2014 [facility] Height 63 02/24/2014 [facility] Encounters Location Location Details Encounter Type Encounter Number Reason For Visit Attending Provider ADM Date DC Date Status Source [facility] Office Visit [id number] Audrey Cardona MD 02/24/2014 02/24/2014 [facility] Lab Report [id number] Audrey Cardona MD 02/25/2014 02/25/2014 [facility] Office Visit [id number] Audrey Cardona MD 05/19/2014 05/19/2014 [facility] Procedures Procedure Code Date Perfomer Comments Source smoking/tobacco cessation, patient education and counseling 14 05/19/2014 yes [facility] smoking/tobacco cessation, patient education and counseling 14 02/24/2014 yes [facility]
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
--- OUTSIDE RECORDS SUMMARY | 2018-09-15 21:54 | XMS REPORT ---
Author Author [facility] Address Unknown Phone Unavailable Care Team Providers Care Agent Licensing Clerk Name Role Phone Unavailable Unavailable Problems This patient has no known problems. Allergies, Adverse Reactions, Alerts This patient has no known allergies or adverse reactions. Medications This patient has no known medications. Encounters Start Date/Time End Date/Time Encounter Type Admission Type Attending Clinicians Care Facility Care Department Encounter ID 2018-09-13 17:27:00 2018-09-13 17:27:00 Emergency E [facility] [id number]
--- OUTSIDE RECORDS SUMMARY | 2018-09-15 21:54 | XMS REPORT | Continuity of Care Document ---
Author Author [facility] Organization [facility] Address Unknown Phone Unavailable Care Team Providers Care Blast Setter Name Role Phone MD Brendan, Audrey MORENO Unavailable Insurance Providers Payer name Policy type / Coverage type Policy ID Covered constitution party ID Policy Khanna [facility] (MEDICAID HMO) [place] ACS - TMHP - TRADITIONAL Encounters Encounter Performer Location Date Lab Report Audrey Cardona MD [facility] [place] Feb 25, 2014 Allergies, Adverse Reactions, Alerts Type Substance Reaction Status Drug allergy CYMBALTA speech impairment Active Problems Problem Effective Dates Problem Status DIABETES MELLITUS, TYPE II, UNCONTROLLED Feb 24, 2014 Active DEPRESSION, MAJOR Feb 24, 2014 Active HYPERTENSION Feb 24, 2014 Active HYPERLIPIDEMIA Feb 24, 2014 Active PEPTIC ULCER DISEASE Feb 24, 2014 Active LOSS OF APPETITE Feb 24, 2014 Active DIABETIC NEUROPATHY Feb 24, 2014 Active FATIGUE Feb 24, 2014 Active SMOKER Feb 24, 2014 Active Procedures Date Description Comments Feb 24, 2014 smoking status Current every day smoker Feb 24, 2014 smoking/tobacco cessation, patient education and counseling yes Medications Medication Instructions Start Date Status LEVEMIR FLEXTOUCH 100 UNIT/ML SOPN inject 12 units sub q once at night Feb 24, 2014 Active NOVOLOG FLEXPEN 100 UNIT/ML SOPN inject 8 units sub q three times a day with meals Feb 24, 2014 Active REGLAN 5 MG TABS take one tablet by mouth four times a day Feb 24, 2014 Active BUSPIRONE HCL 5 MG TABS take one tablet by mouth three times a day Feb 24, 2014 Active GABAPENTIN 300 MG CAPS take one capsule by mouth three times a day Feb 24, 2014 Active LISINOPRIL 40 MG TABS take one tablet by mouth once a day Feb 24, 2014 Active PANTOPRAZOLE SODIUM 40 MG TBEC take one tablet by mouth at bedtime Feb 24, 2014 Active METFORMIN HCL 500 MG TABS Take one tablet by mouth two times a day Feb 24, 2014 Active SUCRALFATE 1 GM TABS take 1 tablet four times a day Feb 24, 2014 Active MIRTAZAPINE 30 MG TABS Take one tablet by mouth once a day at bedtime Feb 24, 2014 Active METOPROLOL SUCCINATE ER 25 MG [id number] Take one tablet by mouth once a day every 24 hours Feb 24, 2014 Active STRIP To check 2 times a day (to dispense insurance preferance) Feb 24, 2014 Active LANCETS To check 2 times a day (to dispense insurance preferance) Feb 24, 2014 Active Vital Signs Date Description Test Result Feb 24, 2014 weight E&M - 3141-9 WEIGHT 156 lb Feb 24, 2014 temperature E&M TEMPERATURE 97.0 deg f Feb 24, 2014 respiratory rate E&M - 9279-1 RESP RATE 16 /min Feb 24, 2014 pulse rate E&M - 8867-4 PULSE RATE 108 /min Feb 24, 2014 blood pressure, systolic - 8480-6 BP SYSTOLIC 142 mm Hg Feb 24, 2014 blood pressure, diastolic - 8462-4 BP DIASTOLIC 78 mm Hg Feb 24, 2014 height E&M - 8302-2 HEIGHT 63 in
--- OUTSIDE RECORDS SUMMARY | 2018-09-15 21:54 | XMS REPORT | Continuity of Care Document ---
Author Author [facility] Address Unknown Phone Unavailable Care Team Providers Care Fishing Game Warden Name Role Phone MD Brendan, Audrey MORENO Unavailable Insurance Providers Payer name Policy type / Coverage type Policy ID Covered libertarian ID Policy Khanna [facility] (MEDICAID HMO) [place] [facility] (MEDICAID HMO) Encounters Encounter Performer Location Date Office Visit Audrey Cardona MD [facility] May 19, 2014 Allergies, Adverse Reactions, Alerts Type Substance [...] 2014 Active SMOKER Feb 24, 2014 Active CHRONIC PAIN SYNDROME May 19, 2014 Active ANXIETY DISORDER May 19, 2014 Active NONCOMPLIANCE May 19, 2014 Active GASTROPARESIS May 19, 2014 Active Procedures Date Description Comments Feb 24, 2014 smoking status Current every day smoker Feb 24, 2014 smoking/tobacco cessation, patient education and counseling yes May 19, 2014 smoking status Current every day smoker May 19, 2014 smoking/tobacco cessation, patient education and counseling yes Medications Medication Instructions Start Date Status NOVOLOG FLEXPEN 100 UNIT/ML SOPN inject 8 units sub q three times a day with meals Feb 24, 2014 Active BUSPIRONE HCL 5 [...] 2014 Active METOPROLOL SUCCINATE ER 25 MG [id number] Take one tablet by mouth once a day every 24 hours Feb 24, 2014 Active STRIP To check 2 times a day (to dispense insurance preferance) Feb 24, 2014 Active LANCETS To check 2 times a day (to dispense insurance preferance) Feb 24, 2014 Active LEVEMIR FLEXTOUCH 100 UNIT/ML SOPN inject 12 units sub q once at night Feb 24, 2014 Active ONDANSETRON HCL 4 MG TABS take one tablet by mouth twice a day as needed for nausea Feb 24, 2014 Active POLYETHYLENE GLYCOL 3350 POWD take 17 gr a day as instructed as needed constipation May 19, 2014 Active HYDROXYZINE HCL 10 MG TABS 1 tablet 4 times daily as needed for anxiety and insomnia May 19, 2014 Active Vital Signs Date Description Test [...] height E&M - 8302-2 HEIGHT 63 in May 19, 2014 height E&M - 8302-2 HEIGHT 63 in May 19, 2014 weight E&M - 3141-9 WEIGHT 168.25 lb May 19, 2014 temperature E&M TEMPERATURE 96.9 deg f May 19, 2014 respiratory rate E&M - 9279-1 RESP RATE 14 /min May 19, 2014 pulse rate E&M - 8867-4 PULSE RATE 97 /min May 19, 2014 blood pressure, systolic - 8480-6 BP SYSTOLIC 141 mm Hg May 19, 2014 blood pressure, diastolic - 8462-4 BP DIASTOLIC 70 mm Hg
--- OUTSIDE RECORDS SUMMARY | 2018-09-15 21:54 | XMS REPORT | Continuity of Care Document ---
Author Author [facility] Address Unknown Phone Unavailable Care Team Providers Care Patient Educator Name Role Phone MD Brendan, Audrey MORENO Unavailable Insurance Providers Payer name Policy type / Coverage type Policy ID Covered green party ID Policy Khanna [facility]) [place] ACS - TM[place] - TRADITIONAL Encounters Encounter Performer Location Date Office Visit Audrey Cardona MD [facility] Feb 24, 2014 Allergies, Adverse Reactions, Alerts Type Substance [...] 2014 Active METOPROLOL SUCCINATE ER 25 MG [id number] Take one tablet by mouth once a [...]
--- OUTSIDE RECORDS SUMMARY | 2018-09-15 21:54 | XMS REPORT | Clinical Summary ---
Author Author [facility] Address Unknown Phone Unavailable Care Team Providers Care Cd Mixer Name Role Phone Rosita Wong MD PCP Allergies Comments Active Allergy Reactions Severity Noted Date Anxiety and Speech impairement Duloxetine Other (See High 10/22/2013 Comments) Medications End Date Status Medication Sig Dispensed Refills Start Date Active fluticasone (FLONASE) 50 2 sprays by 0 mcg/actuation nasal spray Each Nare route daily as needed for rhinitis. Active loratadine (CLARITIN) 10 Take 10 mg by 0 mg tablet mouth daily as needed for allergies. Active HYDROcodone-acetaminophen Take 1 tablet 0 (NORCO) 7.5-325 mg per by mouth tablet every 6 (six) hours as needed for moderate pain. Active metoclopramide (REGLAN) Take 10 mg by 0 10 MG tablet mouth 4 (four) times a day. Active zolpidem (AMBIEN) 5 MG Take 5 mg by 0 tablet mouth nightly as needed for sleep. Active ALPRAZolam (XANAX) 0.25 Take 0.25 mg 0 MG tablet by mouth 2 (two) times a day as needed for anxiety. Active metoprolol succinate XL Take 25 mg by 0 (TOPROL-XL) 25 mg 24 hr mouth daily. tablet Active pregabalin (LYRICA) 75 MG Take 75 mg by 0 capsule mouth 3 (three) times a day. Active omeprazole (PriLOSEC) 40 Take 40 mg by 0 MG capsule mouth daily. Active lisinopril Take 5 mg by 0 (PRINIVIL,ZESTRIL) 5 mg mouth daily. tablet Active insulin DETEMIR (LEVEMIR Inject 45 15 pen 1 FLEXTOUCH U-100 INSULN) units twice a 8 100 unit/mL (3 mL) day insulin pen Active insulin ASPART (NovoLOG Inject 40 20 pen 1 Flexpen U-100 Insulin) units tid 8 100 unit/mL insulin pen with meals plus correction scale. Active pen needle, diabetic (PEN Inject 5 200 each 1 NEEDLE) 31 gauge x 5/16" times a day 8 needle Active blood sugar diagnostic Matrix test 200 strip 2 strips (ClimeworksTOUCH ULTRA strip. Test 4 8 TEST) strip test strips times a day + PRN Active Problems Problem Noted Date Vitamin D [...] 2016 Diabetic gastroparesis s/p Gastric pacemaker 02/01/2016 Immunizations Name Dates Previously Given Next Due FLUCELVAX QUAD PF (0.5mL 06/01/2017 syringe) INFLUENZA QUAD PF 2016 Family History Medical History Relation Name Comments Diabetes Father Diabetes Mother Heart disease Mother Relation Name Status Comments Father Mother Social History Date Tobacco Use Types Packs/Day Years Used Quit: 10/01/2015 Current Some Day Smoker Cigarettes 1 30 Tobacco Cessation: Counseling Given: Yes Alcohol Use Drinks/Week oz/Week Comments No Sex Assigned at Date Recorded Not on file Industry Job Start Date Occupation Not on file Not on file Not on file Travel End Travel History Travel Start No recent travel history available. Last Filed Vital Signs Not on file Plan of Treatment Health Maintenance Due Date Last Done Comments DIABETIC RETINAL EYE EXAM 1968 DIABETIC FOOT EXAM 02/08/1978 URINE MICROALBUMIN 02/08/1978 BREAST CANCER SCREENING 02/08/2018 COLONOSCOPY SCREENING 02/08/2018 SHINGLES VACCINES (#1) 02/08/2018 INFLUENZA VACCINE 10/31/2018 06/01/2017, 2016 Implants Device Identifier Shelf Expiration Date Model / Serial / Lot Implanted Type Area Manufactur er Pacemaker Pacemaker Procedures Comments Procedure Name Priority Date/Time Associated Diagnosis TRANSFUSE RED BLOOD CELLS Routine 12/05/2017 5:34 PM CDT after 09/14/2017 Results * Transfuse RBC (12/05/2017 5:34 PM CDT) after 09/14/2017 Insurance Type Payer Benefit Subscriber ID Effective Phone Address Plan / Dates Group O UHC MEDICAID [employer] xxxxxxxxx 2016- COMM STAR+ Present BHAVNA Advance Directives Patient has advance care planning documents, and code status on file. For more i nformation, please contact: Hill Marino [address] [place] [address] Date Inactivated Comments Code Status Date Activated 12/15/2016 7:31 PM DNR 12/10/2016 4:10 AM Code Status decision reached by: Patient
--- OUTSIDE RECORDS SUMMARY | 2018-09-15 22:09 | XMS REPORT | Clinical Summary ---
Author Author [facility] Address Unknown Phone Unavailable Care Team Providers Care Air Conditioning Coil Assembler Name Role Phone Rosita Wong MD PCP [...] diagnostic Matrix test 200 strip 2 strips (WistoneTOUCH ULTRA strip. Test 4 8 TEST) strip [...] more i nformation, please contact: Hill Marino [address] [place] [address] Date Inactivated Comments Code Status Date Activated 12/15/2016 7:31 PM DNR 12/10/2016 4:10 AM Code Status decision reached by: Patient
[2018-09-15] MEDS ORDERED: SODIUM CHLORIDE 0.9% 1000ML 1,000 ML IV ONE (22:30)
[2018-09-15] MEDS ORDERED: METOCLOPRAMIDE HCL 10 MG/2ML VIAL IV ONE (22:30)
[2018-09-15] MEDS ORDERED: PROMETHAZINE HCL (IM) 25 MG/ML VIAL IM ONE (22:30)
[2018-09-15 22:33] LABS: BASOPHILS % 0.3 % (0.0-1.0); EOSINOPHILS % 0.1 % (0.0-6.0); HEMATOCRIT 39.3 % (34.2-44.1); HEMOGLOBIN 12.7 g/dL (12.0-16.0); LYMPHOCYTES # (AUTO) 1.2 (1.0-3.2); LYMPHOCYTES % 18.1 % (18.0-39.1); MEAN CORPUSCULAR HEMOGLOBIN 28.7 pg (28-32); MEAN CORPUSCULAR HGB CONC 32.3 g/dL (31-35); MEAN CORPUSCULAR VOLUME 88.7 fL (81-99); MONOCYTES # (AUTO) 0.3 (0.2-0.8); MONOCYTES % 3.8 % (4.4-11.3); NEUTROPHILS # (AUTO) 5.2 (2.1-6.9); PLATELET COUNT 204 x10e3/uL (140-360); RED BLOOD COUNT 4.43 x10e6/uL (3.6-5.1); RED CELL DISTRIBUTION WIDTH 13.9 % (11.7-14.4)
[2018-09-15 22:52] LABS: ALBUMIN 3.4 g/dL (3.5-5.0); ALBUMIN/GLOBULIN RATIO 0.8 (0.8-2.0); ANION GAP 17.7 mmol/L (8-16); CALCIUM 9.9 mg/dL (8.4-10.2); CREATININE, SERUM 1.35 mg/dL (0.57-1.11); POTASSIUM 4.7 mmol/L (3.5-5.1)
[2018-09-15 23:02] LABS: BILIRUBIN,URINE NEGATIVE (NEGATIVE); CLARITY,URINE CLOUDY (CLEAR); COLOR,URINE YELLOW (YELLOW); KETONES,URINE NEGATIVE (NEGATIVE); LEUKOCYTE ESTERASE ,URINE NEGATIVE (NEGATIVE); NITRITE,URINE NEGATIVE (NEGATIVE); PROTEIN,URINE DIPSTICK 2+ (NEGATIVE); URINE UROBILINOGEN 0.2 mg/dL (0.2 - 1)
[2018-09-15 23:22] LABS: BACTERIA,URINE FEW /HPF; EPITHELIAL CELLS,URINE FEW /LPF; RBC,URINE >50 /HPF (0-5)
[2018-09-15] MEDS ORDERED: INSULIN REGULAR, HUMAN 100 UNIT/1 ML 3ML VIAL SQ ONE (23:30)
[2018-09-16] VITALS: BP 121/90
== END 2018-09-16 00:06 | disposition home or self-care (01) ==
LOC: ER 22:06
DX: R10.13 Epigastric pain (principal); R11.2 Nausea with vomiting, unspecified; I10 Essential (primary) hypertension; E11.9 Type 2 diabetes mellitus without complications; K21.9 Gastro-esophageal reflux disease without esophagitis; F32.9 Major depressive disorder, single episode, unspecified; F17.200 Nicotine dependence, unspecified, uncomplicated; N30.91 Cystitis, unspecified with hematuria; Z79.4 Long term (current) use of insulin
CPT/HCPCS: 36415; 80053; 81001; 82150; 82948; 83690; 85025; 96372; 96374; 99284; J2550; J2765; J7030